=== PATIENT | male | born 1965 | race Two or more races ===

== ENCOUNTER 2019-07-12 00:34 | Emergency (ER) | payer MEDICARE, OTHER ==
[~2019-07-12] VITALS: Ht 162.6 cm; Wt 72.6 kg
[2019-07-12] MEDS ORDERED: Piperacillin/Tazobactam 3.375 GM in NS 110 ML IVPB ONE (01:00)
[2019-07-12] MEDS ORDERED: HYDROmorphone 1mg/ml Carpuject IVP ONE (01:00)
[2019-07-12] MEDS ORDERED: Vancomycin 1.5 GM in NS 275 ML IVPB ONE (01:00)
--- NOTE | 2019-07-12 01:00 | NUR ---
ED Nurse Note: Recieved pt from home, here with c/o right thumb pain for past 3 days after puncture with screwdriver, thumb is red, swollen and warm to touch, pt states always with pain but suddennly pain very severe and cant sleep, 10/. denies fevers or any other injuries, denies tetanus.
--- NOTE | 2019-07-12 01:13 | Emergency Room Report ---
History of Present Illness General Chief Complaint: Upper Extremity Injury Source: Patient Present Illness HPI This a 53-year-old male with a history of traumatic brain injury. He presents with chief complaint of right thumb pain. 4 days ago he was using a screwdriver on something and stabbed the right thumb. Since then is more swollen and painful. Tonight is severe pain that was throbbing. Can fall asleep. Pain is 10 out of 10. There is some redness and swelling to that area. No other injury. No nausea no vomiting. No fever chills. No drainage. 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 Patient History Past Medical History: see triage record, old chart reviewed Past Surgical History: other Pertinent Family History: none Social History: Denies: smoking Immunizations: UTD Reviewed Nursing Documentation: PMH: Agreed; PSxH: Agreed Review of Systems Eye: Denies: eye pain, blurred vision ENT: Denies: ear pain, nose congestion, throat swelling Respiratory: Denies: cough, shortness of breath Cardiovascular: Denies: chest pain, palpitations Gastrointestinal: Denies: abdominal pain, diarrhea, nausea, vomiting Musculoskeletal: Reports: joint pain, joint swelling; Denies: back pain Skin: Denies: rash Neurological: Denies: headache, numbness Endocrine: Denies: increased thirst, increased urine Hematologic/Lymphatic: Denies: easy bruising All Other Systems: negative except mentioned in HPI Physical Exam Vital Signs Date Time Temp Pulse Resp B/P (MAP) Pulse Ox O2 Delivery O2 Flow Rate FiO2 07/12/19 00:42 97.9 95 18 128/74 (92) 97 Room Air Vitals normal Sp02 EP Interpretation: reviewed, normal General Appearance: well appearing, no apparent distress, alert Head: normocephalic, atraumatic Eyes: bilateral eye PERRL, bilateral eye EOMI ENT: hearing grossly normal, normal pharynx Neck: full range of motion, supple, no meningismus Respiratory: chest non-tender, lungs clear, normal breath sounds Cardiovascular #1: regular rate, rhythm, no murmur Gastrointestinal: normal bowel sounds, non tender, no mass, no organomegaly, no bruit, non-distended Musculoskeletal: back normal, normal range of motion, gait/station normal, tender - Right thumb: Over the DIP joint dorsally there is edema and swelling. There is redness. He still has full range of motion of that joint. He has obvious paronychia to 80% of the thumb. There is is tenderness. The pad of the thumb has edema but is soft. No obvious felon. Psychiatric: mood/affect normal Procedures Incision and Drainage Incision and Drainage : Consent: Verbal Site: right thumb Blade Size: 11 I & D Procedure: betadine prep Wound Location: upper extremity Anesthesia: 1% Lidocaine Volume Anesthetic (ccs): 2 Patient Tolerated: Well Complications: None Progress Initially, I clean his fingernail with chlorhexidine and then trephinated with a cauterizer. There was minor amount of pus expressed. Patient felt better afterward. I did not soak this finger in a Betadine solution. Afterward, I did a digital block with 1% lidocaine without epinephrine. Then I ran 11 blade scalpel along the nailbed and there is more pus expressed. Over the puncture wound of the MCP joint and checked the small amount of lidocaine with insulin needle. I did I made a small incision. There is no pus expressed. Patient tolerated seizure without any problem. Wound was then dressed. Medical Decision Making Diagnostic Impression: Primary Impression: Cellulitis of thumb, right Additional Impression: Paronychia ER Course Patient with a cellulitis and abscess/paronychia from a puncture wound. No evidence of any felon. No evidence of any tenosynovitis. Will discharge home. IV antibiotics given here. Other X-Ray Diagnostic Results Other X-Ray Diagnostic Results : X-Ray ordered: rt thumb xrays # of Views/Limited Vs Complete: 4 View Indication: Pain EP Interpretation: Yes Interpretation: no dislocation, no soft tissue swelling, no fractures Impression: No acute disease Electronically Signed by: Jitendra Lemus MD Last Vital Signs Date Time Temp Pulse Resp B/P (MAP) Pulse Ox O2 Delivery O2 Flow Rate FiO2 07/12/19 00:42 97.9 95 18 128/74 (92) 97 Room Air Status: improved Disposition: HOME, SELF-CARE Condition: Stable Scripts Cephalexin* (KEFLEX*) 500 Mg Capsule 500 MG ORAL TID, #21 CAP Prov: Jitendra Lemus MD 07/12/19 Hydrocodone/Acetaminophen 5-325* (HYDROCODONE/ACETAMINOPHEN 5-325*) 1 Each Tablet 1 TAB ORAL Q6H PRN for For Pain, #15 TAB 0 Refills Prov: Jitendra Lemus MD 07/12/19 Trimethoprim/Sulfamethoxazole 160/800* (BACTRIM DS TABLET*) 1 Each Tablet 1 TAB ORAL Q12H, #14 TAB 0 Refills Prov: Jitendra Lemus MD 07/12/19 Referrals: [facility],REFERRING (PCP) Additional Instructions: Keep wound clean. Follow up in 1-2 days for recheck. Return if symptoms worsen. Jitendra Lemus MD July 12, 2019 01:13
[2019-07-12 01:30] LABS: BASOPHILS % (AUTO) 0.7 % (0.0-2.0); EOSINOPHILS % (AUTO) 1.7 % (0.0-3.0); HEMATOCRIT 41.9 % (42.0-52.0); HEMOGLOBIN 14.8 G/DL (14.2-18.0); LYMPHOCYTES % (AUTO) 12.6 % (20.0-45.0); MEAN CORPUSCULAR VOLUME 82 FL (80-99); MONOCYTES % (AUTO) 10.8 % (1.0-10.0); NEUTROPHILS % (AUTO) 74.2 % (45.0-75.0); PLATELET COUNT 330 K/UL (150-450); RED BLOOD COUNT 5.12 M/UL (4.70-6.10); RED CELL DISTRIBUTION WIDTH 10.9 % (11.6-14.8)
[2019-07-12 01:40] LABS: ANION GAP 13 mmol/L (5-15); BLOOD UREA NITROGEN 23 mg/dL (7-18); CALCIUM 9.7 MG/DL (8.5-10.1); CARBON DIOXIDE 23 MMOL/L (21-32); CHLORIDE 103 MMOL/L (98-107); CREATININE 1.3 MG/DL (0.55-1.30); POTASSIUM 3.4 MMOL/L (3.5-5.1); SODIUM 139 MMOL/L (136-145)
--- NOTE | 2019-07-12 02:00 | NUR ---
ED Nurse Note: Bcailio AUGUSTE while he performed Incision and drainage on pt right thumb, pt tolerated well, area cleaned and dry dressing applied, pt currently recieving IV antibiotics, tolerating well, no s/s of adverse recton noted, will continue to monitor and d/c when meds completed, IV pain meds given also very effective, pt pain level at o/10.
--- NOTE | 2019-07-12 02:01 | Diagnostic Imaging Report ---
EXAM: XR Right Fingers, 2 or More Views CLINICAL HISTORY: TRAUMA TECHNIQUE: Frontal, lateral and oblique views of the fingers of the right hand. COMPARISON: No relevant prior studies available. FINDINGS: Bones/joints: No acute fracture. No dislocation. Soft tissues: Unremarkable. No radiopaque foreign body. IMPRESSION: No acute osseous abnormalities.
[2019-07-12] MEDS ORDERED: HYDROCODON-ACE1 EA15 ORAL (02:21)
[2019-07-12] MEDS ORDERED: CEPHALEXIN500 MG ORAL (02:21)
[2019-07-12] MEDS ORDERED: BACTRIM DS TAB1 EAC1 ORAL (02:21)
[2019-07-12 02:45] VITALS: BP 122/69
[2019-07-12 03:00] VITALS: BP 122/69
--- NOTE | 2019-07-12 03:00 | NUR ---
ER DISCHARGE NOTE: Patient is cleared to be discharged per ERMD, pt is aox4, on room air, with stable vital signs. pt was given dc and prescription instructions, pt was able to verbalize understanding, pt id band and iv site removed without complications. pt is able to ambulate with steady gait. pt took all belongings.
== END 2019-07-12 03:00 | disposition home or self-care (01) ==
LOC: EMR 00:57
DX: L03.011 Cellulitis of right finger (principal); W27.0XXA Contact with workbench tool, initial encounter; Y92.9 Unspecified place or not applicable
CPT/HCPCS: 10060; 36415; 73140; 80048; 85025; 96365; 96367; 96375; 99284; J1170; J2405; J2543; J3370; J7050

== ENCOUNTER 2019-08-03 22:12 | Inpatient (IN) | payer MEDICARE, MEDICAID ==
[~2019-08-03] VITALS: Ht 160 cm; Wt 77.1 kg
[~2019-08-03 22:12] MED LIST: BACTRIM DS TAB1 EAC1 ORAL; CEPHALEXIN500 MG ORAL; HYDROCODON-ACE1 EA15 ORAL
[2019-08-03 22:20] VITALS: BP 196/122
[2019-08-03 22:42] LABS: BASOPHILS % (AUTO) 0.9 % (0.0-2.0); EOSINOPHILS % (AUTO) 0.2 % (0.0-3.0); HEMATOCRIT 44.3 % (42.0-52.0); HEMOGLOBIN 14.2 G/DL (14.2-18.0); LYMPHOCYTES % (AUTO) 8.4 % (20.0-45.0); MEAN CORPUSCULAR VOLUME 90 FL (80-99); MONOCYTES % (AUTO) 7.6 % (1.0-10.0); PLATELET COUNT 312 K/UL (150-450); RED BLOOD COUNT 4.94 M/UL (4.70-6.10); RED CELL DISTRIBUTION WIDTH 12.5 % (11.6-14.8); WHITE BLOOD COUNT 14.8 K/UL (4.8-10.8)
[2019-08-03] MEDS ORDERED: Methocarbamol 750mg tab ORAL ONE (22:45)
[2019-08-03] MEDS ORDERED: Ketorolac 30mg Inj IV ONE (22:45)
[2019-08-03] MEDS ORDERED: Morphine Sulfate 4mg/ml Inj (IV USE ONLY) IVP ONE (22:45)
[2019-08-03 22:55] LABS: ANION GAP 11 mmol/L (5-15); BLOOD UREA NITROGEN 22 mg/dL (7-18); CALCIUM 9.3 MG/DL (8.5-10.1); CARBON DIOXIDE 26 MMOL/L (21-32); CHLORIDE 104 MMOL/L (98-107); CREATININE 1.4 MG/DL (0.55-1.30); POTASSIUM 3.9 MMOL/L (3.5-5.1); SODIUM 141 MMOL/L (136-145)
[2019-08-03 23:00] LABS: ALANINE AMINOTRANSFERASE 30 U/L (12-78); ALBUMIN 4.2 G/DL (3.4-5.0); ALBUMIN/GLOBULIN RATIO 1.2 (1.0-2.7); ALKALINE PHOSPHATASE 73 U/L (46-116); ASPARTATE AMINO TRANSFERASE 22 U/L (15-37); BILIRUBIN,TOTAL 0.7 MG/DL (0.2-1.0)
[2019-08-03] MEDS ORDERED: Omnipaque 350 100ml vial INJ PRN ×2 (23:00)
--- NOTE | 2019-08-04 00:27 | Emergency Room Report ---
History of Present Illness General Chief Complaint: Back Pain-No Injury Source: Patient Present Illness HPI 53-year-old male presents the ED for evaluation. Brought in by family from home. Complaining of back pain. Started today. Dull, 10 out of 10, nonradiating. States he has had similar back pain in the past. Denies nausea or vomiting. Denies dysuria or hematuria. Denies any fall or injury. BP in triage very high. Patient states he is not taking his BP meds in a few months. Denies chest pain or shortness of breath. No other aggravating relieving factors. Denies any other associated symptoms Allergies: Coded Allergies: No Known Allergies (Unverified , 07/12/19) COVID-19 Screening Contact w/high risk pt: No Recent Travel to affected area: No Experienced COVID-19 symptoms?: No COVID-19 Testing performed CLERICAL TRANSCRIBER: No Patient History Past Medical History: none Past Surgical History: none Pertinent Family History: none Social History: Denies: smoking, alcohol use, drug use Immunizations: UTD Reviewed Nursing Documentation: PMH: Agreed; PSxH: Agreed Nursing Documentation-PMH Past Medical History: No Stated History Review of Systems All Other Systems: negative except mentioned in HPI Physical Exam Vital Signs Date Time Temp Pulse Resp B/P (MAP) Pulse Ox O2 Delivery O2 Flow Rate FiO2 08/03/19 22:16 98.2 81 19 196/122 (146) 96 Room Air Sp02 EP Interpretation: reviewed, normal General Appearance: alert, GCS 15, non-toxic, mild distress Head: normocephalic, atraumatic Eyes: bilateral eye normal inspection, bilateral eye PERRL ENT: hearing grossly normal, normal pharynx, no angioedema, normal voice Neck: full range of motion, supple/symm/no masses Respiratory: chest non-tender, lungs clear, normal breath sounds, speaking full sentences Cardiovascular #1: regular rate, rhythm, no edema Cardiovascular #2: 2+ carotid (R), 2+ carotid (L), 2+ radial (R), 2+ radial (L) , 2+ dorsalis pedis (R), 2+ dorsalis pedis (L) Gastrointestinal: normal bowel sounds, non tender, soft, non-distended, no guarding, no rebound Rectal: deferred Genitourinary: normal inspection, no CVA tenderness Musculoskeletal: normal range of motion, gait/station normal, tender - R paraspinal lumbar tenderness Neurologic: alert, motor strength/tone normal, oriented x3, sensory intact, responsive, speech normal Psychiatric: judgement/insight normal, memory normal, mood/affect normal, no suicidal/homicidal ideation Reflexes: 3+ bicep (R), 3+ bicep (L), 3+ tricep (R), 3+ tricep (L), 3+ knee (R) , 3+ knee (L) Lymphatic: no adenopathy Procedures Critical Care Time Critical Care Time i. I feel this is a highly complex case requiring extensive working including EKG/Rhythm strip, Xray/CT/US, Blood/urine lab work, repeat exams while in ED, and administration of strong opiates/narcotics for pain control, admission to hospital or close patient follow up. Total time: 45 min bedside evaluation and treatment excludes procedures (EKG). Reason for critical care: elevated BP Possible complications: hypotension, hypertension, VA, shock, arrhythmias, metabolic acidosis, end organ damage, respiratory failure. Interventions: labs, meds, CT Course: Presenting with back pain. Systolic BP over 200. Minimal leukocytosis. Hemoglobin/hematocrit stable. CTA shows 7mm stone on right side with obstructing. BP improved after medication. given flomax. given antibiotics. given toradol. Consultations: nursing staff, EMS, family Performed by: Dr Mitchell Tolerated well condition = serious j. because of unstable vital signs this patient had a condition that could potentially threaten life or limb. I feel this is a critical patient who required my full attention while patient was considered critical. Total Critical Care Time excluding procedures was greater than 50 minutes Medical Decision Making Diagnostic Impression: Primary Impression: Hypertension Qualified Codes: I10 - Essential (primary) hypertension Additional Impression: Kidney stone on right side ER Course Hospital Course 53-year-old M presents to ED with R lower back pain Differential diagnosis includes-aortic dissection, muscle strain kidney stone, pyelonephritis Clinical course Patient placed on stretcher. After initial history and physical I ordered labs , IV fluids, pain medications and CT scan Labs - marked leukocytosis, Cr 1.4, LFTs normal, UA - gross blood CT scan shows 7mm stone on R with hydronephrosis/perinephric stranding Patient continues to have pain. BP initially over 200. Patient also has not been taking his BP meds for several months now. Given hydralazine with BP improved. Given Flomax. Given Toradol. Antibiotics given. Dr Mercado consulted and will evaluate patient. Patient will be admitted to Dr Mesa service I feel this is a highly complex case requiring extensive working including EKG/ Rhythm strip, Xray/CT/US, Blood/urine lab work, repeat exams while in ED, and administration of strong opiates/narcotics for pain control, admission to hospital or close patient follow up. Diagnosis - kidney stone, hypertesion admitted to floor in serious condition Labs Test 08/03/19 22:30 White Blood Count 14.8 K/UL (4.8-10.8) Red Blood Count 4.94 M/UL (4.70-6.10) Hemoglobin 14.2 G/DL (14.2-18.0) Hematocrit 44.3 % (42.0-52.0) Mean Corpuscular Volume 90 FL (80-99) Mean Corpuscular Hemoglobin 28.7 PG (27.0-31.0) Mean Corpuscular Hemoglobin Concent 32.0 G/DL (32.0-36.0) Red Cell Distribution Width 12.5 % (11.6-14.8) Platelet Count 312 K/UL (150-450) Mean Platelet Volume 6.7 FL (6.5-10.1) Neutrophils (%) (Auto) 83.0 % (45.0-75.0) Lymphocytes (%) (Auto) 8.4 % (20.0-45.0) Monocytes (%) (Auto) 7.6 % (1.0-10.0) Eosinophils (%) (Auto) 0.2 % (0.0-3.0) Basophils (%) (Auto) 0.9 % (0.0-2.0) Sodium Level 141 MMOL/L (136-145) Potassium Level 3.9 MMOL/L (3.5-5.1) Chloride Level 104 MMOL/L (98-107) Carbon Dioxide Level 26 MMOL/L (21-32) Anion Gap 11 mmol/L (5-15) Blood Urea Nitrogen 22 mg/dL (7-18) Creatinine 1.4 MG/DL (0.55-1.30) Estimat Glomerular Filtration Rate 53.2 mL/min (>60) Glucose Level 123 MG/DL (74-106) Calcium Level 9.3 MG/DL (8.5-10.1) Total Bilirubin 0.7 MG/DL (0.2-1.0) Aspartate Amino Transf (AST/SGOT) 22 U/L (15-37) Alanine Aminotransferase (ALT/SGPT) 30 U/L (12-78) Alkaline Phosphatase 73 U/L (46-116) Total Protein 7.8 G/DL (6.4-8.2) Albumin 4.2 G/DL (3.4-5.0) Globulin 3.6 g/dL Albumin/Globulin Ratio 1.2 (1.0-2.7) CT/MRI/US Diagnostic Results CT/MRI/US Diagnostic Results : Imaging Test Ordered: CTA Chest/Abd/Pelvis Impression EXAM: CT Abdomen and Pelvis Without and With Intravenous Contrast CLINICAL HISTORY: ABD PAIN TECHNIQUE: Axial computed tomography images of the abdomen and pelvis without and with intravenous contrast. CTDI is 126 mGy and DLP is 591 mGy-cm. One or more of the following dose reduction techniques were used: automated exposure control, adjustment of the mA and/or kV according to patient size, use of iterative reconstruction technique. COMPARISON: No relevant prior studies available. FINDINGS: Lung bases: Unremarkable. No mass. No consolidation. ABDOMEN: Liver: See below. Gallbladder and bile ducts: See below. Pancreas: See below. Spleen: See below. Adrenals: Unremarkable. No mass. Kidneys and ureters: 7 mm partially obstructing calculus located at the right mid ureter. Mild upstream dilatation of the collecting system. There is suggestion of mild urothelial enhancement. There is left renal enlargement and perinephric stranding/small fluid. These findings are likely obstructive but would correlate clinically to exclude a supervised infection. Additional small right and left renal calyceal Which Are Nonobstructing. Exophytic Cyst at the Lower Pole of the Left Kidney. Stomach and bowel: Fluid within nondistended loops of small bowel and within stomach without bowel wall thickening or surrounding inflammation can be normal or can be seen with gastroenteritis in the right clinical setting. PELVIS: Small fat-containing right inguinal hernia. Appendix: No appendicitis, inflammatory changes of bowel or bowel obstruction. Bladder: Unremarkable. No mass. No stones. Reproductive: Unremarkable as visualized. ABDOMEN and PELVIS: Intraperitoneal space: No free fluid. No free air. Bones/joints: No acute fracture. No dislocation. Soft tissues: Unremarkable. Vasculature: Aorta, liver, spleen, pancreas, gallbladder, and remaining kidneys are unremarkable. No abdominal aortic aneurysm. Lymph nodes: Unremarkable. No enlarged lymph nodes. IMPRESSION: 7 mm partially obstructing calculus located at the right mid ureter. Mild upstream dilatation of the collecting system. There is suggestion of mild urothelial enhancement. There is left renal enlargement and perinephric stranding/small fluid. These findings are likely obstructive but would correlate clinically to exclude a supervised infection. Last Vital Signs Date Time Temp Pulse Resp B/P (MAP) Pulse Ox O2 Delivery O2 Flow Rate FiO2 08/03/19 23:09 98.2 08/03/19 23:03 202/143 08/03/19 22:20 83 19 96 Room Air Status: improved Disposition: ADMITTED INPATIENT Condition: Serious Referrals: NOT CHOSEN [facility]/,REFERRING (PCP) Axel Mitchell MD Aug 04, 2019 00:27
[2019-08-04 00:37] VITALS: BP 160/95
--- NOTE | 2019-08-04 00:42 | Diagnostic Imaging Report ---
EXAM: CT Chest Without and With Intravenous Contrast CLINICAL HISTORY: ABD PAIN TECHNIQUE: Axial computed tomography images of the chest without and with intravenous contrast. CTDI is 126 mGy and DLP is 591 mGy-cm. One or more of the following dose reduction techniques were used: automated exposure control, adjustment of the mA and/or kV according to patient size, use of iterative reconstruction technique. COMPARISON: No relevant prior studies available. FINDINGS: Lungs: Unremarkable. No mass. No consolidation. Pleural space: Unremarkable. No pneumothorax. No significant effusion. Heart: Unremarkable. No cardiomegaly. No significant pericardial effusion. Bones/joints: Unremarkable. No acute fracture. No dislocation. Soft tissues: Unremarkable. Vasculature: Unremarkable. No thoracic aortic aneurysm. Lymph nodes: Unremarkable. No enlarged lymph nodes. IMPRESSION: No acute cardiopulmonary disease. EXAM: CT Abdomen and Pelvis Without and With Intravenous Contrast CLINICAL HISTORY: ABD PAIN TECHNIQUE: Axial computed tomography images of the abdomen and pelvis without and with intravenous contrast. CTDI is 126 mGy and DLP is 591 mGy-cm. One or more of the following dose reduction techniques were used: automated exposure control, adjustment of the mA and/or kV according to patient size, use of iterative reconstruction technique. COMPARISON: No relevant prior studies available. FINDINGS: Lung bases: Unremarkable. No mass. No consolidation. ABDOMEN: Liver: See below. Gallbladder and bile ducts: See below. Pancreas: See below. Spleen: See below. Adrenals: Unremarkable. No mass. Kidneys and ureters: 7 mm partially obstructing calculus located at the right mid ureter. Mild upstream dilatation of the collecting system. There is suggestion of mild urothelial enhancement. There is left renal enlargement and perinephric stranding/small fluid. These findings are likely obstructive but would correlate clinically to exclude a supervised infection. Additional small right and left renal calyceal Which Are Nonobstructing. Exophytic Cyst at the Lower Pole of the Left Kidney. Stomach and bowel: Fluid within nondistended loops of small bowel and within stomach without bowel wall thickening or surrounding inflammation can be normal or can be seen with gastroenteritis in the right clinical setting. PELVIS: Small fat-containing right inguinal hernia. Appendix: No appendicitis, inflammatory changes of bowel or bowel obstruction. Bladder: Unremarkable. No mass. No stones. Reproductive: Unremarkable as visualized. ABDOMEN and PELVIS: Intraperitoneal space: No free fluid. No free air. Bones/joints: No acute fracture. No dislocation. Soft tissues: Unremarkable. Vasculature: Aorta, liver, spleen, pancreas, gallbladder, and remaining kidneys are unremarkable. No abdominal aortic aneurysm. Lymph nodes: Unremarkable. No enlarged lymph nodes. IMPRESSION: 7 mm partially obstructing calculus located at the right mid ureter. Mild upstream dilatation of the collecting system. There is suggestion of mild urothelial enhancement. There is left renal enlargement and perinephric stranding/small fluid. These findings are likely obstructive but would correlate clinically to exclude a supervised infection.
[2019-08-04] MEDS ORDERED: cefTRIAXone 1 GM in NS 55 ML IVPB ONE (01:00)
[2019-08-04] MEDS ORDERED: Tamsulosin 0.4mg cap ORAL ONE (01:00)
[2019-08-04] MEDS ORDERED: Ketorolac 30mg Inj IV ONE (01:00)
[2019-08-04 01:59] LABS: APPEARANCE,URINE CLEAR; BILIRUBIN, URINE NEGATIVE (NEGATIVE); COLOR,URINE PALE YELLOW; GLUCOSE, URINE (UA) NEGATIVE (NEGATIVE); KETONES,URINE 2+ (NEGATIVE); LEUKOCYTE ESTERASE ,URINE NEGATIVE (NEGATIVE); NITRITE,URINE NEGATIVE (NEGATIVE); PH,URINE 7 (4.5-8.0); PROTEIN,URINE 1+ (NEGATIVE); UROBILINOGEN,URINE NORMAL MG/DL (0.0-1.0)
[2019-08-04 04:00] VITALS: BP 138/103
[2019-08-04] MEDS ORDERED: cloNIDine 0.2mg Tab ORAL SCH (06:00)
[2019-08-04 07:02] LABS: BASOPHILS % (AUTO) 1.7 % (0.0-2.0); EOSINOPHILS % (AUTO) 1.7 % (0.0-3.0); HEMOGLOBIN 13.2 G/DL (14.2-18.0); LYMPHOCYTES % (AUTO) 23.1 % (20.0-45.0); MEAN CORPUSCULAR VOLUME 90 FL (80-99); MONOCYTES % (AUTO) 10.7 % (1.0-10.0); NEUTROPHILS % (AUTO) 62.9 % (45.0-75.0); PLATELET COUNT 278 K/UL (150-450); RED BLOOD COUNT 4.54 M/UL (4.70-6.10); RED CELL DISTRIBUTION WIDTH 12.2 % (11.6-14.8)
[2019-08-04 07:42] LABS: ANION GAP 10 mmol/L (5-15); BLOOD UREA NITROGEN 20 mg/dL (7-18); CALCIUM 8.2 MG/DL (8.5-10.1); CARBON DIOXIDE 25 MMOL/L (21-32); CHLORIDE 106 MMOL/L (98-107); CREATININE 1.1 MG/DL (0.55-1.30); POTASSIUM 3.5 MMOL/L (3.5-5.1); SODIUM 141 MMOL/L (136-145)
[2019-08-04 08:00] VITALS: BP 127/81
[2019-08-04 12:00] VITALS: BP 122/82
--- NOTE | 2019-08-04 13:45 | Consultation ---
DATE OF CONSULTATION: 08/04/2019 CONSULTING PHYSICIAN: Ludin Mercado MD. REASON FOR CONSULTATION: Right mid ureteral stone obstruction and hydronephrosis. HISTORY OF PRESENT ILLNESS: The patient is a pleasant gentleman who was admitted through the ER last night with right flank pain. CT urogram showed 7 mm partially obstructing stone of the mid ureter. He had this pain for several days and was admitted for fluid management and pain control. PAST MEDICAL HISTORY: Reviewed and noted in the chart. FAMILY HISTORY: Reviewed and noted in the chart. SOCIAL HISTORY: Reviewed and noted in the chart. LABORATORY DATA: His white count was 14.8, hematocrit is 44.3. His creatinine is 1.4. It went down to 1.[address] was described above. ASSESSMENT AND PLAN: The patient has obstructing left ureteral stone. We will proceed with lithotripsy tomorrow. He will be NPO post midnight with preoperative antibiotics. We will follow this patient. Ludin Mercado M.D. DR: GENEVA JOB#: [id number] CC:
--- NOTE | 2019-08-04 13:52 | Consultation ---
History of Present Illness General Date patient seen: Aug 04, 2019 Time patient seen: 01:30 - pm Chief Complaint: Present Illness Allergies: Coded Allergies: No Known Allergies (Unverified , 07/12/19) Medication History Scheduled Cephalexin* (Keflex*), 500 MG ORAL TID Trimethoprim/Sulfamethoxazole 160/800* (Bactrim Ds Tablet*), 1 TAB ORAL Q12H Scheduled PRN Hydrocodone/Acetaminophen 5-325* (Hydrocodone/Acetaminophen 5-325*), 1 TAB ORAL Q6H PRN for For Pain Patient History Healthcare decision maker Resuscitation status Advanced Directive on File Physical Exam Last 24 Hour Vital Signs Date Time Temp Pulse Resp B/P (MAP) Pulse Ox O2 Delivery O2 Flow Rate FiO2 08/04/19 09:00 Room Air 08/04/19 08:00 98.3 92 18 127/81 (96) 97 08/04/19 04:00 98.1 98 18 138/103 (115) 97 08/04/19 02:46 Room Air 08/04/19 02:08 98.2 92 16 160/99 99 Room Air 08/04/19 01:27 98.2 08/04/19 00:37 98.2 94 16 160/95 99 Room Air 08/03/19 23:09 98.2 08/03/19 23:09 98.2 08/03/19 23:03 202/143 08/03/19 22:20 98.2 83 19 196/122 96 Room Air 08/03/19 22:16 98.2 81 19 196/122 (146) 96 Room Air Intake and Output 08/03/19 08/04/19 19:00 07:00 Intake Total 1200 ml Output Total 500 ml Balance 700 ml Intake Oral 200 ml IV Total 1000 ml Output Urine Total 500 ml # Voids 1 Laboratory Tests Test 08/03/19 22:30 08/04/19 01:00 08/04/19 06:30 White Blood Count 14.8 K/UL (4.8-10.8) H 9.0 K/UL (4.8-10.8) Red Blood Count 4.94 M/UL (4.70-6.10) 4.54 M/UL (4.70-6.10) L Hemoglobin 14.2 G/DL (14.2-18.0) 13.2 G/DL (14.2-18.0) L Hematocrit 44.3 % (42.0-52.0) 41.0 % (42.0-52.0) L Mean Corpuscular Volume 90 FL (80-99) 90 FL (80-99) Mean Corpuscular Hemoglobin 28.7 PG (27.0-31.0) 29.0 PG (27.0-31.0) Mean Corpuscular Hemoglobin Concent 32.0 G/DL (32.0-36.0) 32.1 G/DL (32.0-36.0) Red Cell Distribution Width 12.5 % (11.6-14.8) 12.2 % (11.6-14.8) Platelet Count 312 K/UL (150-450) 278 K/UL (150-450) Mean Platelet Volume 6.7 FL (6.5-10.1) 6.6 FL (6.5-10.1) Neutrophils (%) (Auto) 83.0 % (45.0-75.0) H 62.9 % (45.0-75.0) Lymphocytes (%) (Auto) 8.4 % (20.0-45.0) L 23.1 % (20.0-45.0) Monocytes (%) (Auto) 7.6 % (1.0-10.0) 10.7 % (1.0-10.0) H Eosinophils (%) (Auto) 0.2 % (0.0-3.0) 1.7 % (0.0-3.0) Basophils (%) (Auto) 0.9 % (0.0-2.0) 1.7 % (0.0-2.0) Sodium Level 141 MMOL/L (136-145) 141 MMOL/L (136-145) Potassium Level 3.9 MMOL/L (3.5-5.1) 3.5 MMOL/L (3.5-5.1) Chloride Level 104 MMOL/L (98-107) 106 MMOL/L (98-107) Carbon Dioxide Level 26 MMOL/L (21-32) 25 MMOL/L (21-32) Anion Gap 11 mmol/L (5-15) 10 mmol/L (5-15) Blood Urea Nitrogen 22 mg/dL (7-18) H 20 mg/dL (7-18) H Creatinine 1.4 MG/DL (0.55-1.30) H 1.1 MG/DL (0.55-1.30) Estimat Glomerular Filtration Rate 53.2 mL/min (>60) > 60 mL/min (>60) Glucose Level 123 MG/DL (74-106) H 107 MG/DL (74-106) H Calcium Level 9.3 MG/DL (8.5-10.1) 8.2 MG/DL (8.5-10.1) L Total Bilirubin 0.7 MG/DL (0.2-1.0) Aspartate Amino Transf (AST/SGOT) 22 U/L (15-37) Alanine Aminotransferase (ALT/SGPT) 30 U/L (12-78) Alkaline Phosphatase 73 U/L (46-116) Total Protein 7.8 G/DL (6.4-8.2) Albumin 4.2 G/DL (3.4-5.0) Globulin 3.6 g/dL Albumin/Globulin Ratio 1.2 (1.0-2.7) Urine Color Pale yellow Urine Appearance Clear Urine pH 7 (4.5-8.0) Urine Specific [place] 1.010 (1.005-1.035) Urine Protein 1+ (NEGATIVE) H Urine Glucose (UA) Negative (NEGATIVE) Urine Ketones 2+ (NEGATIVE) H Urine Blood 5+ (NEGATIVE) H Urine Nitrite Negative (NEGATIVE) Urine Bilirubin Negative (NEGATIVE) Urine Urobilinogen Normal MG/DL (0.0-1.0) Urine Leukocyte Esterase Negative (NEGATIVE) Urine RBC Tntc /HPF (0 - 0) H Urine WBC 0-2 /HPF (0 - 0) Urine Squamous Epithelial Cells Few /LPF (NONE/OCC) Urine Bacteria Few /HPF (NONE) Urine Opiates Screen neg (NEGATIVE) Urine Barbiturates Screen neg (NEGATIVE) Phencyclidine (PCP) Screen neg (NEGATIVE) Urine Amphetamines Screen neg (NEGATIVE) Urine Benzodiazepines Screen neg (NEGATIVE) Urine Cocaine Screen neg (NEGATIVE) Urine Marijuana (THC) Screen neg (NEGATIVE) Height (Feet): 5 Height (Inches): 4.00 Weight (Pounds): 195 Medications Current Medications Medications (Trade) Dose Ordered Sig/Bret Route PRN Reason Start Time Stop Time Status Last Admin Dose Admin Acetaminophen/ Hydrocodone Bitart ([place] 5/325) 1 tab Q6H PRN ORAL For Pain 08/04/19 04:45 08/11/19 04:44 Cefazolin Sodium 50 ml @ 100 mls/hr Q8HR IVPB 08/05/19 06:00 08/12/19 05:59 UNV Clonidine HCl (Catapres Tab) 0.1 mg Q6H PRN ORAL For High Blood Pressure 08/04/19 04:45 11/02/19 04:44 Ibuprofen (Motrin) 600 mg Q6H PRN ORAL Mild Pain (Pain Scale 1-3) 08/04/19 10:45 09/03/19 04:44 Iohexol (Omnipaque 350 100ml) 100 ml NOW PRN INJ Radiology Procedure 08/03/19 23:00 08/05/19 22:57 Iohexol (Omnipaque 350 100ml) 100 ml NOW PRN INJ Radiology Procedure 08/03/19 23:00 08/05/19 22:57 Ondansetron HCl (Zofran) 4 mg Q6H PRN IVP Nausea & Vomiting 08/04/19 04:45 09/03/19 04:44 Assessment/Plan Assessment/Plan: (1) Right sided flank pain (2) Kidney stone seen dictated Leonardo Joseph Aug 04, 2019 13:52
--- NOTE | 2019-08-04 14:13 | Consultation ---
Consult Note Consult Note I am asked to evaluate the patient at the request of Dr. Mesa. Patient was seen in room 314, his sister at the bedside. Emergency room note: Chief Complaint: Back Pain-No Injury 53-year-old male presents the ED for evaluation. Brought in by family from home. Complaining of back pain. Started today. Dull, 10 out of 10, nonradiating. States he has had similar back pain in the past. Denies nausea or vomiting. Denies dysuria or hematuria. Denies any fall or injury. BP in triage very high. Patient states he is not taking his BP meds in a few months. Denies chest pain or shortness of breath. No other aggravating relieving factors. 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 Past Medical History: none Past Surgical History: none Past Medical History: No Stated History Vital Signs Date Time Temp Pulse Resp B/P (MAP) Pulse Ox O2 Delivery O2 Flow Rate FiO2 08/03/19 22:16 98.2 81 19 196/122 (146) 96 Room Air Sp02 EP Interpretation: reviewed, normal General Appearance: In no distress Head: normocephalic, atraumatic Eyes: bilateral eye normal inspection, bilateral eye PERRL ENT: hearing grossly normal, normal pharynx, no angioedema, normal voice Neck: full range of motion, supple/symm/no masses Respiratory: chest non-tender, lungs clear, normal breath sounds, speaking full sentences Cardiovascular #1: regular rate, rhythm, no edema Cardiovascular #2: 2+ carotid (R), 2+ carotid (L), 2+ radial (R), 2+ radial (L) , 2+ dorsalis pedis (R), 2+ dorsalis pedis (L) Gastrointestinal: normal bowel sounds, non tender, soft, non-distended, no guarding, no rebound Rectal: deferred Genitourinary: normal inspection, no CVA tenderness Musculoskeletal: normal range of motion, gait/station normal, tender - R paraspinal lumbar tenderness Neurologic: alert, motor strength/tone normal, oriented x3, sensory intact, responsive, speech normal Psychiatric: judgement/insight normal, memory normal, mood/affect normal, no suicidal/homicidal ideation Reflexes: 3+ bicep (R), 3+ bicep (L), 3+ tricep (R), 3+ tricep (L), 3+ knee (R) , 3+ knee (L) Lymphatic: no adenopathy Assessment/Plan This 53-year-old male presented to emergency room with back pain and hypertension and at that time the serum creatinine was 1.4. Hypertension was most likely due to severe pain. Creatinine of 1.4 was most likely secondary to dehydration and ever since its normalized. Conditions: Hypertension, Kidney stone on right side CT iMPRESSION: 7 mm partially obstructing calculus located at the right mid ureter. Mild upstream dilatation of the collecting system. There is suggestion of mild urothelial enhancement. There is left renal enlargement and perinephric stranding/small fluid. These findings are likely obstructive Suggestions: Patient is going for urological procedure tomorrow by Dr. Mercado Patient is n.p.o. after midnight We will start IV hydration We started Colace and Protonix p.o. PRN blood pressure medication if blood pressure goes over 160 systolic Per orders Boogie Toussaint MD Aug 04, 2019 14:13
[2019-08-04] MEDS: D5 1/2NS w/KCl 20mEq 1,000 ML IV SCH (15:09)
--- NOTE | 2019-08-04 15:12 | Anethesia Preoperative Eval ---
Anesthesia Pre-op PMH/ROS General Date of Evaluation: Aug 04, 2019 Time of Evaluation: 15:08 Anesthesiologist: Mindy ASA Score: ASA 2 Mallampati Score Class I : Soft palate, uvula, fauces, pillars visible Class II: Soft palate, uvula, fauces visible Class III: Soft palate, base of uvula visible Class IV: Only hard plate visible Mallampati Classification: Class II Surgeon: Rogelio Diagnosis: R kidney stone Surgical Procedure: ESWL Anesthesia History: none Family History: no anesthesia problems Allergies: Coded Allergies: No Known Allergies (Unverified , 07/12/19) Medications: see eMAR Patient NPO?: Yes Past Medical History Cardiovascular: Reports: HTN - poorly controled; Denies: CAD, [place], valve dz, arrhythmia, other Pulmonary: Denies: asthma, COPD, GRACIE, other Gastrointestinal/Genitourinary: Reports: GERD; Denies: CRI, ESRD, other Neurologic/Psychiatric: Denies: dementia, CVA, depression/anxiety, TIA, other Endocrine: Denies: DM, hypothyroidism, steroids, other HEENT: Denies: cataract (L), cataract (R), glaucoma, [facility] (L), [facility] (R), other Hematology/Immune: Denies: anemia, DVT, bleeding disorder, other Musculoskeletal/Integumentary: Denies: OA, RA, DJD, DDD, edema, other Other: other - overweight PMH Narrative: as above PSxH Narrative: L eye Sx, Hemorrhoidectomy Anesthesia Pre-op Phys. Exam Physician Exam Last Vital Signs Date Time Temp Pulse Resp B/P (MAP) Pulse Ox O2 Delivery O2 Flow Rate FiO2 08/04/19 12:00 98.6 95 17 122/82 (95) 97 08/04/19 09:00 Room Air Constitutional: NAD Neurologic: CN 2-12 intact Cardiovascular: RRR, no M/R/G Respiratory: CTA Gastrointestinal: S/NT/ND Airway Exam Mallampati Score: Class II MO: full Neck: flexible ROM: full Teeth: missing Dentures: no upper, no lower Anesthesia Pre-op A/P Labs Hematology Test 08/03/19 22:30 08/04/19 06:30 White Blood Count 14.8 K/UL (4.8-10.8) H 9.0 K/UL (4.8-10.8) Red Blood Count 4.94 M/UL (4.70-6.10) 4.54 M/UL (4.70-6.10) L Hemoglobin 14.2 G/DL (14.2-18.0) 13.2 G/DL (14.2-18.0) L Hematocrit 44.3 % (42.0-52.0) 41.0 % (42.0-52.0) L Mean Corpuscular Volume 90 FL (80-99) 90 FL (80-99) Mean Corpuscular Hemoglobin 28.7 PG (27.0-31.0) 29.0 PG (27.0-31.0) Mean Corpuscular Hemoglobin Concent 32.0 G/DL (32.0-36.0) 32.1 G/DL (32.0-36.0) Red Cell Distribution Width 12.5 % (11.6-14.8) 12.2 % (11.6-14.8) Platelet Count 312 K/UL (150-450) 278 K/UL (150-450) Mean Platelet Volume 6.7 FL (6.5-10.1) 6.6 FL (6.5-10.1) Neutrophils (%) (Auto) 83.0 % (45.0-75.0) H 62.9 % (45.0-75.0) Lymphocytes (%) (Auto) 8.4 % (20.0-45.0) L 23.1 % (20.0-45.0) Monocytes (%) (Auto) 7.6 % (1.0-10.0) 10.7 % (1.0-10.0) H Eosinophils (%) (Auto) 0.2 % (0.0-3.0) 1.7 % (0.0-3.0) Basophils (%) (Auto) 0.9 % (0.0-2.0) 1.7 % (0.0-2.0) Chemistry Test 08/03/19 22:30 08/04/19 06:30 Sodium Level 141 MMOL/L (136-145) 141 MMOL/L (136-145) Potassium Level 3.9 MMOL/L (3.5-5.1) 3.5 MMOL/L (3.5-5.1) Chloride Level 104 MMOL/L (98-107) 106 MMOL/L (98-107) Carbon Dioxide Level 26 MMOL/L (21-32) 25 MMOL/L (21-32) Anion Gap 11 mmol/L (5-15) 10 mmol/L (5-15) Blood Urea Nitrogen 22 mg/dL (7-18) H 20 mg/dL (7-18) H Creatinine 1.4 MG/DL (0.55-1.30) H 1.1 MG/DL (0.55-1.30) Estimat Glomerular Filtration Rate 53.2 mL/min (>60) > 60 mL/min (>60) Glucose Level 123 MG/DL (74-106) H 107 MG/DL (74-106) H Calcium Level 9.3 MG/DL (8.5-10.1) 8.2 MG/DL (8.5-10.1) L Total Bilirubin 0.7 MG/DL (0.2-1.0) Aspartate Amino Transf (AST/SGOT) 22 U/L (15-37) Alanine Aminotransferase (ALT/SGPT) 30 U/L (12-78) Alkaline Phosphatase 73 U/L (46-116) Total Protein 7.8 G/DL (6.4-8.2) Albumin 4.2 G/DL (3.4-5.0) Globulin 3.6 g/dL Albumin/Globulin Ratio 1.2 (1.0-2.7) Risk Assessment & Plan Assessment: ASA 2 Plan: GA Status Change Before Surgery: No Pre-Antibiotics Drug: as scheduled Guanako Guillen MD Aug 04, 2019 15:12
[2019-08-04 16:00] VITALS: BP 128/76
[2019-08-04] MEDS: Docusate 100mg cap ORAL SCH (17:20)
--- NOTE | 2019-08-04 18:30 | Consultation ---
DATE OF CONSULTATION: 08/04/2019 PAIN MANAGEMENT CONSULTATION CONSULTING PHYSICIAN: Azul Lopez M.D. REFERRING PHYSICIAN: Leandro Mesa M.D. PHYSICIAN PREPRESS SPECIALIST: TRIP Thomas CHIEF COMPLAINT: Right-sided flank pain. HISTORY OF PRESENT ILLNESS: This is a 53-year-old male, who is being seen on the Med[facility]Surg floor of [facility] for initial pain management consultation. The patient was admitted under the care of Dr. Mesa, found to have kidney stone which is obstructing at this time. He says that it started about a day ago, it is off and on pain that is acute, rating 10/10, describing the pain as throbbing, stabbing, pulling pain, increased with certain movement and reduced with medication of [place] 5/325 one tablet every 6 hours as needed for severe pain. He has been seen Dr. Mercado who schedule the patient for lithotripsy. At this time, he is comfortable on the current medication regimen. We were consulted so the patient would have adequate pain control while here in the hospital. PAST MEDICAL HISTORY: Hypertension. PAST SURGICAL HISTORY: Head and eye surgery. SOCIAL HISTORY: Denies smoking tobacco, drinking alcohol, or drug abuse. ALLERGIES: No known drug allergies. MEDICATIONS: No known outpatient medication. REVIEW OF SYSTEMS: Denies rash, fever, chills, sweating, dizziness, drowsiness, sore throat, or change in weight. No shortness of breath or chest pain. No nausea, vomiting, diarrhea, blood in stool. No dysuria. PHYSICAL EXAMINATION: GENERAL: Alert, awake, and oriented. VITAL SIGNS: Blood pressure 127/81, heart rate 92, oxygen saturation 97%, respiratory rate 18, temperature 9.3 degrees Fahrenheit. HEENT: PERRLA. NECK: Range of motion is full in all directions. No tenderness to paracervical muscles. No adenopathy. LUNGS: Decreased breath sounds bilaterally. HEART: Regular. ABDOMEN: Soft, nontender. BACK: Range of motion is decreased in flexion and extension. CVA tenderness noted. EXTREMITIES: Upper and lower extremity range of motion is full in all directions. No cyanosis. No clubbing. No edema. Sensory is intact. Reflexes are not obtainable. No adenopathy. ASSESSMENT AND PLAN: The patient is a 53-year-old male with right-sided flank pain, kidney stone. The patient will be continued on [place] as needed, scheduled for lithotripsy with Dr. Mercado, no complications. The patient was discussed with Dr. Lopez and Dr. Lopez concurred. We will follow up with the patient. Thank you very much for the courtesy of this consultation. Azul Lopez M.D. TRIP Thomas DR: Roshni JOB#: [id number] CC:
[2019-08-04] MEDS: HYDROcodone/Acetamin 5/325 tab ORAL PRN (19:50)
[2019-08-04 20:00] VITALS: BP 123/77
--- NOTE | 2019-08-04 22:15 | Consultation ---
DATE OF CONSULTATION: 08/04/2019 INFECTIOUS DISEASES CONSULTATION CONSULTING PHYSICIAN: Fortino Conde MD PRIMARY ATTENDING PHYSICIAN: Leandro Mesa MD REASON FOR CONSULTATION: UTI with pyelonephritis. HISTORY OF PRESENT ILLNESS: A 53-year-old male admitted this morning complaining of right flank pain that was sudden onset. CT scan of the abdomen and pelvis showed partially obstructing stone in the right ureter. The patient also has some perinephric stranding and leukocytosis of 14.8 at the time of admission. PAST MEDICAL HISTORY: Significant. MEDICATIONS: Getting cefazolin, Colace, Protonix, ibuprofen, [place], Zofran, clonidine. SOCIAL HISTORY: Single. Denies alcohol, drug abuse, or smoking. REVIEW OF SYSTEMS: Limited. The patient is very drowsy because of pain medications. No fever. No coughing. No pain. No hematuria. PHYSICAL EXAMINATION: VITAL SIGNS: Temperature is 98.3, pulse 92, blood pressure 127/81. GENERAL APPEARANCE: No acute distress. HEAD AND NECK: [place] conjunctivae. HEART: Normal rate LUNGS: Clear. ABDOMEN: Soft and nontender. No CVA tenderness. EXTREMITIES: No edema. NEUROLOGIC: Awake, alert, verbal. LABORATORY AND DIAGNOSTIC DATA: WBC today is 9, hemoglobin 13.2, hematocrit 41, platelets 278. Sodium 141, potassium 2.5, chloride 106, bicarb 25, BUN 20, creatinine 1.1. Creatinine at the time of admission was 1.4. Urine toxicology was negative. UA shows hematuria with rbc's too numerous to count, ketones 2+, protein 1+. CT scan of the chest, abdomen, and pelvis showed no acute cardiopulmonary disease, 7 mm partially obstructing calculus at the right mid ureter, upstream dilatation of the collecting system, left renal enlargement, and perinephric stranding. IMPRESSION: Right ureteral stone resulting in hematuria and dilation of upstream collecting system, acute renal failure, may have pyelonephritis. RECOMMENDATION: Agree with cefazolin for now. The patient will have lithotripsy tomorrow. At the end of my exam, I thank Dr. Mesa for involving me in the care of this patient. Fortino Conde M.D. DR: Bernice JOB#: [id number] CC: [place]
[2019-08-05] VITALS (14 sets, daily range): BP systolic 123–168; BP diastolic 75–115
--- NOTE | 2019-08-05 00:30 | History and Physical Report ---
DATE OF ADMISSION: 08/04/2019 HISTORY OF PRESENT ILLNESS: The patient being admitted for obstructive kidney stone. The patient was found to have 7 mm obstructing kidney stone. The patient also has history of hypertension, complaining of right flank pain for one day associated with vomiting for one day. The patient denies shortness of breath. Denies cough. Denies fever or chills. Denies any dysuria. PAST MEDICAL HISTORY: Significant for hemorrhoids and hypertension. MEDICATIONS: Cannot tell the name of the medications. ALLERGIES: No known allergies. FAMILY HISTORY: Noncontributory. SOCIAL HISTORY: He has history of smoking. Denies history of alcohol abuse. Denies history of drug abuse. PAST SURGICAL HISTORY: Hemorrhoid surgery, neck surgery, and ear surgery. REVIEW OF SYSTEMS: HEENT: Denies headaches. RESPIRATORY: Denies shortness of breath. Denies cough. CARDIOVASCULAR: Denies chest pain. GASTROINTESTINAL: Does have vomiting and nausea for one day and reports of right flank pain for one day. EXTREMITIES: Denies pain in lower extremities. CENTRAL NERVOUS SYSTEM: Denies change in vision or speech pattern. PHYSICAL EXAMINATION: VITAL SIGNS: Temperature is 98.2, pulse is 92, and blood pressure is 160/99. HEENT: PERRLA. NECK: Supple. No lymphadenopathy. CHEST: Clear to auscultation. CARDIOVASCULAR: Regular rate and rhythm. GASTROINTESTINAL: Soft and nontender. No organomegaly. Positive bowel sounds. EXTREMITIES: No edema. Moves all four extremities. NEUROLOGIC: Sensory intact to light touch. Reflexes equal on both sides. Moves all four extremities. LABORATORY DATA: WBC of 14.8, hemoglobin 14.2, and platelets of 312. Sodium 141, potassium of 3.9, chloride 104, BUN of 22, creatinine 1.4, and glucose of 123. ASSESSMENT AND PLAN: 1. 7 mm obstructing kidney stone. Dr. Ludin Mercado has been consulted to see the patient for that reason. 2. Hypertension. 3. Vomiting. 4. I have also consulted Dr. Fortino Conde, Dr. Toussaint, Dr. Lopez for pain management as well as for the management of azotemia and rule out any infectious etiology antibiotics if needed per Dr. Fortino Conde. Leandro Mesa M.D. DR: ECHO JOB#: [id number] CC:
[2019-08-05 05:47] LABS: EOSINOPHILS % (AUTO) 3.1 % (0.0-3.0); HEMATOCRIT 39.8 % (42.0-52.0); HEMOGLOBIN 12.5 G/DL (14.2-18.0); LYMPHOCYTES % (AUTO) 33.1 % (20.0-45.0); MEAN CORPUSCULAR VOLUME 90 FL (80-99); MONOCYTES % (AUTO) 9.6 % (1.0-10.0); NEUTROPHILS % (AUTO) 53.2 % (45.0-75.0); PLATELET COUNT 279 K/UL (150-450); RED BLOOD COUNT 4.42 M/UL (4.70-6.10); RED CELL DISTRIBUTION WIDTH 12.4 % (11.6-14.8); WHITE BLOOD COUNT 6.5 K/UL (4.8-10.8)
[2019-08-05] MEDS ORDERED: ceFAZolin 2gm/50ml Premix 50 ML IVPB SCH (06:00)
[2019-08-05 06:21] LABS: ALANINE AMINOTRANSFERASE 20 U/L (12-78); ALKALINE PHOSPHATASE 53 U/L (46-116); ANION GAP 7 mmol/L (5-15); ASPARTATE AMINO TRANSFERASE 20 U/L (15-37); BILIRUBIN,TOTAL 0.9 MG/DL (0.2-1.0); BLOOD UREA NITROGEN 15 mg/dL (7-18); CALCIUM 8.1 MG/DL (8.5-10.1); CARBON DIOXIDE 27 MMOL/L (21-32); CHLORIDE 107 MMOL/L (98-107); CHOLESTEROL 123 MG/DL (< 200); GAMMA GLUTAMYL TRANSPEPTIDASE 13 U/L (5-85); HDL CHOLESTEROL 35 MG/DL (40-60); PHOSPHORUS 3.5 MG/DL (2.5-4.9); POTASSIUM 3.6 MMOL/L (3.5-5.1); SODIUM 141 MMOL/L (136-145); TRIGLYCERIDES 94 MG/DL (30-150)
[2019-08-05] MEDS ORDERED: ceFAZolin 2gm/50ml Premix 50 ML IVPB ONE (08:00)
[2019-08-05] MEDS: Docusate 100mg cap ORAL SCH ×3 (09:16→17:03)
--- NOTE | 2019-08-05 09:59 | General Progress Note ---
Assessment/Plan Assessment/Plan: (1) Right sided flank pain (2) Kidney stone Patient to be continued on [place]. D/w Dr. Lopez and he concurred. Subjective Date patient seen: Aug 05, 2019 Time patient seen: 09:45 - am Allergies: Coded Allergies: No Known Allergies (Unverified , 07/12/19) Subjective REVIEW OF SYSTEMS: Denies rash, fever, chills, sweating, dizziness, drowsiness, sore throat, or change in weight. No shortness of breath or chest pain. No nausea, vomiting, diarrhea, blood in stool. No dysuria. SUBJECTIVE: He is in bed no pain waiting for procedure. No new complaints at this time. Objective Last 24 Hour Vital Signs Date Time Temp Pulse Resp B/P (MAP) Pulse Ox O2 Delivery O2 Flow Rate FiO2 08/05/19 08:00 98.1 67 18 129/81 (97) 98 08/05/19 04:00 98.1 73 16 125/79 (94) 97 08/05/19 00:00 98.2 68 16 128/75 (92) 97 08/04/19 21:00 Room Air 08/04/19 20:20 98.0 08/04/19 20:00 98.0 78 16 123/77 (92) 97 08/04/19 16:00 98.0 88 17 128/76 (93) 96 08/04/19 12:00 98.6 95 17 122/82 (95) 97 Intake and Output 08/04/19 08/05/19 19:00 07:00 Intake Total 500 ml 960 ml Output Total 1200 ml Balance -700 ml 960 ml Intake Oral 300 ml 360 ml IV Total 200 ml 600 ml Output Urine Total 1200 ml # Voids 2 3 Laboratory Tests 08/05/19 04:50: White Blood Count 6.5, Red Blood Count 4.42L, Hemoglobin 12.5L, Hematocrit 39.8L , Mean Corpuscular Volume 90, Mean Corpuscular Hemoglobin 28.3, Mean Corpuscular Hemoglobin Concent 31.5L, Red Cell Distribution Width 12.4, Platelet Count 279, Mean Platelet Volume 6.7, Neutrophils (%) (Auto) 53.2, Lymphocytes (%) (Auto) 33.1, Monocytes (%) (Auto) 9.6, Eosinophils (%) (Auto) 3.1H, Basophils (%) (Auto) 1.0, Sodium Level 141, Potassium Level 3.6, Chloride Level 107, Carbon Dioxide Level 27, Anion Gap 7, Blood Urea Nitrogen 15, Creatinine 1.0, Estimat Glomerular Filtration Rate > 60, Glucose Level 94, Hemoglobin A1c 6.7H, Uric Acid 5.0, Calcium Level 8.1L, Phosphorus Level 3.5, Magnesium Level 2.1, Total Bilirubin 0.9, Gamma Glutamyl Transpeptidase 13, Aspartate Amino Transf (AST/SGOT) 20, Alanine Aminotransferase (ALT/SGPT) 20, Alkaline Phosphatase 53, C-Reactive Protein, Quantitative 0.8, Pro-B-Type Natriuretic Peptide 75, Total Protein 6.1L, Albumin 3.0L, Globulin 3.1, Albumin/ Globulin Ratio 1.0, Triglycerides Level 94, Cholesterol Level 123, LDL Cholesterol 71, HDL Cholesterol 35L, Cholesterol/HDL Ratio 3.5, Vitamin B12 Level 252, Folate 21.8, Thyroid Stimulating Hormone (TSH) 1.369 Height (Feet): 5 Height (Inches): 3.00 Weight (Pounds): 170 Objective GENERAL: Alert, awake, and oriented. LUNGS: Decreased breath sounds bilaterally. HEART: Regular. ABDOMEN: Soft, nontender. EXTREMITIES: No cyanosis. No clubbing. No edema. NEURO: No changes. Leonardo Joseph Aug 05, 2019 09:58
[2019-08-05] MEDS: D5 1/2NS w/KCl 20mEq 1,000 ML IV SCH (10:57)
[2019-08-05] MEDS ORDERED: Iothalamate Meglumine 60% 30ML INJ ONE (12:17)
[2019-08-05] MEDS ORDERED: LR 1000ml 1,000 ML IVLG SCH (12:23)
[2019-08-05] MEDS ORDERED: HYDROcodone/Acetamin 7.5/325 tab ORAL PRN (12:30)
[2019-08-05] MEDS ORDERED: Hydromorphone 0.5mg/0.5ml inj IVP PRN (12:30)
[2019-08-05] MEDS ORDERED: Midazolam 2mg/2ml Inj IVP PRN (12:30)
[2019-08-05] MEDS ORDERED: fentaNYL 100 mcg/2 mL IV PRN (12:30)
[2019-08-05] MEDS ORDERED: Metoclopramide 10mg/2ml Inj IVP PRN (12:30)
[2019-08-05] MEDS ORDERED: DiphenhydrAMINE 50mg/ml Inj IVP PRN (12:30)
[2019-08-05] MEDS ORDERED: Atropine Sulfate 0.4mg/ml inj IVP PRN (12:30)
[2019-08-05] MEDS ORDERED: Meperidine 25mg/0.5ml Inj (FOR RIGORS ONLY) IV PRN (12:30)
[2019-08-05] MEDS ORDERED: LORazepam Inj 2mg/ml 1ml IV PRN (12:30)
[2019-08-05] MEDS ORDERED: HYDROcodone/Acetamin 5/325 tab ORAL PRN (12:30)
[2019-08-05] MEDS ORDERED: oxyCODONE HCL/Acetaminophen 5/325mg ORAL PRN (12:30)
--- NOTE | 2019-08-05 12:32 | Immediate Post-Op Evaluation ---
Immediate Post-Op Evalulation Immediate Post-Op Evalulation Procedure: ESWL, R Stent Placement Date of Evaluation: Aug 05, 2019 Time of Evaluation: 15:22 IV Fluids: 700 LR Blood Products: 0 Estimated Blood Loss: 25 Urinary Output: 0 Blood Pressure Systolic: 156 Blood Pressure Diastolic: 115 Pulse Rate: 76 Respiratory Rate: 16 O2 Sat by Pulse Oximetry: 100 Temperature (Fahrenheit): 98.4 Pain Score (1-10): 2 Nausea: No Vomiting: No Complications 0 Patient Status: awake, reacts, patent, extubated, none Hydration Status: adequate Dru Gram Ancef IV Given Within 1 Hr of Incision: Yes Time Given: 14:06 Marco Jefferson MD Aug 05, 2019 12:32
[2019-08-05] MEDS ORDERED: Lidocaine 1% MPF 10mg/ml 5ml ONE (12:35)
[2019-08-05] MEDS ORDERED: Midazolam 2mg/2ml Inj ONE (12:38)
[2019-08-05] MEDS ORDERED: Neostigmine 1mg/ml 10ml Inj ONE (13:00)
[2019-08-05] MEDS ORDERED: Sterile Water Irrig 2000ml IRRIG ONE (13:00)
[2019-08-05] MEDS ORDERED: Rocuronium Bromide 100mg/10ml Inj IV ONE (13:00)
[2019-08-05] MEDS ORDERED: LR 1000ml ONE (13:00)
[2019-08-05] MEDS ORDERED: Sterile Water Irrig 1000ml IRRIG ONE (13:00)
[2019-08-05] MEDS ORDERED: NS Irrig 1000ml ONE (13:00)
[2019-08-05] MEDS ORDERED: NS Irrig 4000ml IRRIG ONE ×2 (13:00→14:31)
--- NOTE | 2019-08-05 13:01 | Nephrology Progress Note ---
Assessment/Plan Problem List: (1) Kidney stone on right side (2) Hypertension Assessment Hypertension, Kidney stone on right side CT iMPRESSION: 7 mm partially obstructing calculus located at the right mid ureter. Mild upstream dilatation of the collecting system. There is suggestion of mild urothelial enhancement. There is left renal enlargement and perinephric stranding/small fluid. These findings are likely obstructive Plan Patient is going for urological procedure by Dr. Mercado today at 1 PM Patient is currently n.p.o. On IV fluid We started Colace and Protonix p.o. PRN blood pressure medication if blood pressure goes over 160 systolic Per orders Subjective ROS Limited/Unobtainable: No Constitutional: Reports: malaise Objective Objective Last 24 Hour Vital Signs Date Time Temp Pulse Resp B/P (MAP) Pulse Ox O2 Delivery O2 Flow Rate FiO2 08/05/19 12:00 97.0 60 18 136/93 (107) 98 08/05/19 09:00 Room Air 08/05/19 08:00 98.1 67 18 129/81 (97) 98 08/05/19 04:00 98.1 73 16 125/79 (94) 97 08/05/19 00:00 98.2 68 16 128/75 (92) 97 08/04/19 21:00 Room Air 08/04/19 20:20 98.0 08/04/19 20:00 98.0 78 16 123/77 (92) 97 08/04/19 16:00 98.0 88 17 128/76 (93) 96 Intake and Output 08/04/19 08/05/19 19:00 07:00 Intake Total 500 ml 960 ml Output Total 1200 ml Balance -700 ml 960 ml Intake Oral 300 ml 360 ml IV Total 200 ml 600 ml Output Urine Total 1200 ml # Voids 2 3 Current Medications Medications (Trade) Dose Ordered Sig/Bret Route PRN Reason Start Time Stop Time Status Last Admin Dose Admin Acetaminophen/ Hydrocodone Bitart ([place] 5/325) 1 tab Q1H PRN ORAL Mild Pain (Pain Scale 1-3) 08/05/19 12:30 08/05/19 18:00 Acetaminophen/ Hydrocodone Bitart ([place] 5/325) 1 tab Q6H PRN ORAL For Pain 08/04/19 04:45 08/11/19 04:44 08/04/19 19:50 Acetaminophen/ Hydrocodone Bitart ([place] 7.5/325) 1 tab Q1H PRN ORAL Moderate Pain (Pain Scale 4-6) 08/05/19 12:30 08/05/19 18:00 Al Hydroxide/Mg Hydroxide (Mylanta) 15 ml Q1H PRN ORAL gi upset 08/05/19 12:30 08/05/19 18:00 Atropine Sulfate (Atropine 0.4mg/ ml) 0.5 mg Q5M PRN IVP HR<40 08/05/19 12:30 08/05/19 18:00 Clonidine HCl (Catapres Tab) 0.1 mg Q6H PRN ORAL For High Blood Pressure 08/04/19 04:45 11/02/19 04:44 Dextrose/ Electrolytes 1,000 ml @ 50 mls/hr Q20H IV 08/04/19 15:00 09/03/19 14:59 08/05/19 10:57 Diphenhydramine HCl (Benadryl) 25 mg Q15M PRN IVP Itching 08/05/19 12:30 08/05/19 18:00 Docusate Sodium (Colace) 100 mg THREE TIMES A DAY ORAL 08/04/19 18:00 09/03/19 17:59 08/05/19 09:16 Fentanyl Citrate (Sublimaze 100 mcg/2 mL) 25 mcg Q10M PRN IV Moderate Pain (Pain Scale 4-6) 08/05/19 12:30 08/05/19 18:00 Hydralazine HCl (Apresoline) 5 mg Q30M PRN IV SBP>160 / DBP>90 08/05/19 12:30 08/05/19 18:00 Hydromorphone HCl (Dilaudid) 0.5 mg Q15M PRN IVP Severe Pain (Pain Scale 7-10) 08/05/19 12:30 08/05/19 18:00 Ibuprofen (Motrin) 600 mg Q6H PRN ORAL Mild Pain (Pain Scale 1-3) 08/04/19 10:45 09/03/19 04:44 Iohexol (Omnipaque 350 100ml) 100 ml NOW PRN INJ Radiology Procedure 08/03/19 23:00 08/05/19 22:57 Iohexol (Omnipaque 350 100ml) 100 ml NOW PRN INJ Radiology Procedure 08/03/19 23:00 08/05/19 22:57 Lactated Ringer's 1,000 ml @ 10 mls/hr Q24H IVLG 08/05/19 12:23 08/05/19 18:00 Lorazepam (Ativan 2mg/ml 1ml) 1 mg Q15M PRN IV For Anxiety 08/05/19 12:30 08/05/19 18:00 Meperidine HCl (Demerol) 25 mg Q5M PRN IV SHIVERING.MAY REPEAT X 1 08/05/19 12:30 08/05/19 18:00 Metoclopramide HCl (Reglan) 10 mg Q1H PRN IVP Nausea & Vomiting 08/05/19 12:30 08/05/19 18:00 Midazolam HCl (Versed 2mg/2ml vial) 1 mg Q15M PRN IVP For Anxiety 08/05/19 12:30 08/05/19 18:00 Ondansetron HCl (Zofran) 4 mg Q1H PRN IVP Nausea & Vomiting 08/05/19 12:30 08/05/19 18:00 Ondansetron HCl (Zofran) 4 mg Q6H PRN IVP Nausea & Vomiting 08/04/19 04:45 09/03/19 04:44 Oxycodone/ Acetaminophen (Percocet 5-325) 1 tab Q1H PRN ORAL Severe Pain (Pain Scale 7-10) 08/05/19 12:30 08/05/19 18:00 Pantoprazole (Protonix) 40 mg EVERY 12 HOURS ORAL 08/04/19 14:15 09/03/19 14:14 08/05/19 09:16 Laboratory Tests 08/05/19 04:50: White Blood Count 6.5, Red Blood Count 4.42L, Hemoglobin 12.5L, Hematocrit 39.8L , Mean Corpuscular Volume 90, Mean Corpuscular Hemoglobin 28.3, Mean Corpuscular Hemoglobin Concent 31.5L, Red Cell Distribution Width 12.4, Platelet Count 279, Mean Platelet Volume 6.7, Neutrophils (%) (Auto) 53.2, Lymphocytes (%) (Auto) 33.1, Monocytes (%) (Auto) 9.6, Eosinophils (%) (Auto) 3.1H, Basophils (%) (Auto) 1.0, Sodium Level 141, Potassium Level 3.6, Chloride Level 107, Carbon Dioxide Level 27, Anion Gap 7, Blood Urea Nitrogen 15, Creatinine 1.0, Estimat Glomerular Filtration Rate > 60, Glucose Level 94, Hemoglobin A1c 6.7H, Uric Acid 5.0, Calcium Level 8.1L, Phosphorus Level 3.5, Magnesium Level 2.1, Total Bilirubin 0.9, Gamma Glutamyl Transpeptidase 13, Aspartate Amino Transf (AST/SGOT) 20, Alanine Aminotransferase (ALT/SGPT) 20, Alkaline Phosphatase 53, C-Reactive Protein, Quantitative 0.8, Pro-B-Type Natriuretic Peptide 75, Total Protein 6.1L, Albumin 3.0L, Globulin 3.1, Albumin/ Globulin Ratio 1.0, Triglycerides Level 94, Cholesterol Level 123, LDL Cholesterol 71, HDL Cholesterol 35L, Cholesterol/HDL Ratio 3.5, Vitamin B12 Level 252, Folate 21.8, Thyroid Stimulating Hormone (TSH) 1.369 Height (Feet): 5 Height (Inches): 3.00 Weight (Pounds): 170 General Appearance: no apparent distress Cardiovascular: normal rate Respiratory/Chest: lungs clear Abdomen: soft Boogie Toussaint MD Aug 05, 2019 13:01
--- NOTE | 2019-08-05 13:30 | Pre-Procedure Note/Attestation ---
Pre-Procedure Note/Attestation Complete Prior to Procedure Planned Procedure: right Procedure Narrative: eswl rirs right Indications for Procedure Pre-Operative Diagnosis: right ureteral stone Attestation I attest that I discussed the nature of the procedure; its benefits; risks and complications; and alternatives (and the risks and benefits of such alternatives ), prior to the procedure, with the patient (or the patient's legal termite control representative). I attest that, if there was a reasonable possibility of needing a blood transfusion, the patient (or the patient's legal termite control representative) was given the [facility] standardized written summary, pursuant to the Mikael Mike Blood Safety Act ([place] Health and Safety Code # 1645, as amended). I attest that I re-evaluated the patient just prior to the surgery and that there has been no change in the patient's H&P, except as documented below: Ludin Mercado MD Aug 05, 2019 13:30
[2019-08-05] MEDS ORDERED: Glycopyrrolate 0.2mg/ml 1ml Vial ONE (13:39)
--- NOTE | 2019-08-05 14:26 | Brief Operative Note ---
Immediate Post Operative Note Operative Note Pre-op Diagnosis: right ureteral stone Procedure: ESWL RIRS Right stent placement Post-op Diagnosis: same Post-op Diagnosis: same as pre-op Surgeon: Floyd Mercado Anesthesia: general Specimen: none Complications: none Condition: stable Fluids: 500 Estimated Blood Loss: minimal Implant(s) used?: No Ludin Mercado MD Aug 05, 2019 14:26
[2019-08-05 16:28] LABS: ANION GAP 8 mmol/L (5-15); BLOOD UREA NITROGEN 14 mg/dL (7-18); CALCIUM 8.8 MG/DL (8.5-10.1); CARBON DIOXIDE 28 MMOL/L (21-32); CHLORIDE 105 MMOL/L (98-107); CREATININE 1.1 MG/DL (0.55-1.30); POTASSIUM 3.5 MMOL/L (3.5-5.1); SODIUM 141 MMOL/L (136-145)
[2019-08-05 16:41] LABS: HEMATOCRIT 44.3 % (42.0-52.0); HEMOGLOBIN 14.1 G/DL (14.2-18.0); MEAN CORPUSCULAR VOLUME 90 FL (80-99); PLATELET COUNT 281 K/UL (150-450); RED BLOOD COUNT 4.93 M/UL (4.70-6.10); RED CELL DISTRIBUTION WIDTH 12.5 % (11.6-14.8); WHITE BLOOD COUNT 11.6 K/UL (4.8-10.8)
[2019-08-05] MEDS: HYDROcodone/Acetamin 5/325 tab ORAL PRN (17:03)
--- NOTE | 2019-08-05 21:37 | General Progress Note ---
Assessment/Plan Problem List: (1) Back pain ICD Codes: M54.9 - Dorsalgia, unspecified SNOMED: 371856535 (2) Hypertension ICD Codes: I10 - Essential (primary) hypertension SNOMED: 99693333 Qualifiers: Qualified Codes: I10 - Essential (primary) hypertension (3) Kidney stone on right side ICD Codes: N20.0 - Calculus of kidney SNOMED: 74129632 Assessment/Plan: borderline k kidney stone treatment per dr mckeon afebrile flank pain is improving Subjective ROS Limited/Unobtainable: Yes Allergies: Coded Allergies: No Known Allergies (Unverified , 07/12/19) Objective Last 24 Hour Vital Signs Date Time Temp Pulse Resp B/P (MAP) Pulse Ox O2 Delivery O2 Flow Rate FiO2 08/05/19 18:00 79.9 86 18 123/83 (96) 97 08/05/19 17:33 97.3 08/05/19 17:00 98.0 82 18 127/84 (98) 97 08/05/19 16:44 97.3 73 20 126/81 100 Nasal Cannula 3 08/05/19 16:15 82 15 135/85 99 Nasal Cannula 3 08/05/19 16:00 70 16 127/88 98 Nasal Cannula 3 08/05/19 15:46 169/111 08/05/19 15:45 75 18 157/108 97 Nasal Cannula 3 08/05/19 15:30 72 15 168/102 98 Nasal Cannula 3 08/05/19 15:20 68 20 166/107 100 Simple Mask 6 08/05/19 15:10 98.1 76 16 156/115 100 Simple Mask 6 08/05/19 15:07 76 16 100 08/05/19 12:00 97.0 60 18 136/93 (107) 98 08/05/19 09:00 Room Air 08/05/19 08:00 98.1 67 18 129/81 (97) 98 08/05/19 04:00 98.1 73 16 125/79 (94) 97 08/05/19 00:00 98.2 68 16 128/75 (92) 97 Intake and Output 08/04/19 08/05/19 19:00 07:00 Intake Total 500 ml 960 ml Output Total 1200 ml Balance -700 ml 960 ml Intake Oral 300 ml 360 ml IV Total 200 ml 600 ml Output Urine Total 1200 ml # Voids 2 3 Laboratory Tests 08/05/19 04:50: White Blood Count 6.5, Red Blood Count 4.42L, Hemoglobin 12.5L, Hematocrit 39.8L , Mean Corpuscular Volume 90, Mean Corpuscular Hemoglobin 28.3, Mean Corpuscular Hemoglobin Concent 31.5L, Red Cell Distribution Width 12.4, Platelet Count 279, Mean Platelet Volume 6.7, Neutrophils (%) (Auto) 53.2, Lymphocytes (%) (Auto) 33.1, Monocytes (%) (Auto) 9.6, Eosinophils (%) (Auto) 3.1H, Basophils (%) (Auto) 1.0, Sodium Level 141, Potassium Level 3.6, Chloride Level 107, Carbon Dioxide Level 27, Anion Gap 7, Blood Urea Nitrogen 15, Creatinine 1.0, Estimat Glomerular Filtration Rate > 60, Glucose Level 94, Hemoglobin A1c 6.7H, Uric Acid 5.0, Calcium Level 8.1L, Phosphorus Level 3.5, Magnesium Level 2.1, Total Bilirubin 0.9, Gamma Glutamyl Transpeptidase 13, Aspartate Amino Transf (AST/SGOT) 20, Alanine Aminotransferase (ALT/SGPT) 20, Alkaline Phosphatase 53, C-Reactive Protein, Quantitative 0.8, Pro-B-Type Natriuretic Peptide 75, Total Protein 6.1L, Albumin 3.0L, Globulin 3.1, Albumin/ Globulin Ratio 1.0, Triglycerides Level 94, Cholesterol Level 123, LDL Cholesterol 71, HDL Cholesterol 35L, Cholesterol/HDL Ratio 3.5, Vitamin B12 Level 252, Folate 21.8, Thyroid Stimulating Hormone (TSH) 1.369 08/05/19 15:50: White Blood Count 11.6#H, Red Blood Count 4.93, Hemoglobin 14.1L, Hematocrit 44.3, Mean Corpuscular Volume 90, Mean Corpuscular Hemoglobin 28.5, Mean Corpuscular Hemoglobin Concent 31.8L, Red Cell Distribution Width 12.5, Platelet Count 281, Mean Platelet Volume 6.5, Neutrophils (%) (Auto) , Lymphocytes (%) (Auto) , Monocytes (%) (Auto) , Eosinophils (%) (Auto) , Basophils (%) (Auto) , Sodium Level 141, Potassium Level 3.5, Chloride Level 105 , Carbon Dioxide Level 28, Anion Gap 8, Blood Urea Nitrogen 14, Creatinine 1.1, Estimat Glomerular Filtration Rate > 60, Glucose Level 110H, Calcium Level 8.8, Differential Total Cells Counted 100, Neutrophils % (Manual) 83H, Lymphocytes % (Manual) 15L, Monocytes % (Manual) 1, Eosinophils % (Manual) 1, Basophils % ( Manual) 0, Band Neutrophils 0, Platelet Estimate Adequate, Platelet Morphology Normal, Red Blood Cell Morphology Normal Height (Feet): 5 Height (Inches): 3.00 Weight (Pounds): 170 Leandro Mesa MD Aug 05, 2019 21:37
[2019-08-06] VITALS: BP 133/80
[2019-08-06] MEDS: HYDROcodone/Acetamin 5/325 tab ORAL PRN ×2 (01:34→20:59)
[2019-08-06 04:00] VITALS: BP 117/72
[2019-08-06 08:00] VITALS: BP 124/81
[2019-08-06] MEDS: Docusate 100mg cap ORAL SCH ×3 (08:22→18:55)
[2019-08-06] MEDS: D5 1/2NS w/KCl 20mEq 1,000 ML IV SCH (09:10)
--- NOTE | 2019-08-06 09:48 | Infectious Diseases Prog Note ---
Assessment/Plan Assessment/Plan IMPRESSION: Right ureteral stone s/p ESWL & ureteral stent placement Acute renal failure resolving, ? pyelonephritis in left side RECOMMENDATION: start on PO Cipro Subjective ROS Limited/Unobtainable: No Constitutional: Reports: no symptoms Respiratory: Reports: no symptoms Gastrointestinal/Abdominal: Reports: no symptoms Genitourinary: Reports: hematuria, other - had ESWL & stent placement yesterday Allergies: Coded Allergies: No Known Allergies (Unverified , 07/12/19) Objective Vital Signs Last 24 Hour Vital Signs Date Time Temp Pulse Resp B/P (MAP) Pulse Ox O2 Delivery O2 Flow Rate FiO2 08/06/19 09:00 Nasal Cannula 2.0 08/06/19 08:00 98.2 85 18 124/81 (95) 95 08/06/19 04:00 98.2 67 18 117/72 (87) 98 08/06/19 00:00 97.6 97 18 133/80 (97) 98 08/05/19 21:00 Nasal Cannula 2.0 08/05/19 20:00 97.4 98 16 130/82 (98) 98 08/05/19 18:00 79.9 86 18 123/83 (96) 97 08/05/19 17:33 97.3 08/05/19 17:00 98.0 82 18 127/84 (98) 97 08/05/19 16:44 97.3 73 20 126/81 100 Nasal Cannula 3 08/05/19 16:15 82 15 135/85 99 Nasal Cannula 3 08/05/19 16:00 70 16 127/88 98 Nasal Cannula 3 08/05/19 15:46 169/111 08/05/19 15:45 75 18 157/108 97 Nasal Cannula 3 08/05/19 15:30 72 15 168/102 98 Nasal Cannula 3 08/05/19 15:20 68 20 166/107 100 Simple Mask 6 08/05/19 15:10 98.1 76 16 156/115 100 Simple Mask 6 08/05/19 15:07 76 16 100 08/05/19 12:00 97.0 60 18 136/93 (107) 98 Height (Feet): 5 Height (Inches): 3.00 Weight (Pounds): 170 General Appearance: no acute distress HEENT: mucous membranes moist Respiratory/Chest: lungs clear Cardiovascular: normal rate Abdomen: soft, non tender Genitourinary: other - Barton catheter, gross hematuria Extremities: no edema Neurologic/Psychiatric: alert, oriented x 3, responsive Microbiology Date/Time Source Procedure Growth Status 08/04/19 13:30 Nasopharynx Coronavirus COVID-19 PCR ([facility]) - Final Complete Laboratory Tests Test 08/05/19 15:50 White Blood Count 11.6 K/UL (4.8-10.8) #H Red Blood Count 4.93 M/UL (4.70-6.10) Hemoglobin 14.1 G/DL (14.2-18.0) L Hematocrit 44.3 % (42.0-52.0) Mean Corpuscular Volume 90 FL (80-99) Mean Corpuscular Hemoglobin 28.5 PG (27.0-31.0) Mean Corpuscular Hemoglobin Concent 31.8 G/DL (32.0-36.0) L Red Cell Distribution Width 12.5 % (11.6-14.8) Platelet Count 281 K/UL (150-450) Mean Platelet Volume 6.5 FL (6.5-10.1) Neutrophils (%) (Auto) % (45.0-75.0) Lymphocytes (%) (Auto) % (20.0-45.0) Monocytes (%) (Auto) % (1.0-10.0) Eosinophils (%) (Auto) % (0.0-3.0) Basophils (%) (Auto) % (0.0-2.0) Differential Total Cells Counted 100 Neutrophils % (Manual) 83 % (45-75) H Lymphocytes % (Manual) 15 % (20-45) L Monocytes % (Manual) 1 % (1-10) Eosinophils % (Manual) 1 % (0-3) Basophils % (Manual) 0 % (0-2) Band Neutrophils 0 % (0-8) Platelet Estimate Adequate Platelet Morphology Normal Red Blood Cell Morphology Normal Sodium Level 141 MMOL/L (136-145) Potassium Level 3.5 MMOL/L (3.5-5.1) Chloride Level 105 MMOL/L (98-107) Carbon Dioxide Level 28 MMOL/L (21-32) Anion Gap 8 mmol/L (5-15) Blood Urea Nitrogen 14 mg/dL (7-18) Creatinine 1.1 MG/DL (0.55-1.30) Estimat Glomerular Filtration Rate > 60 mL/min (>60) Glucose Level 110 MG/DL (74-106) H Calcium Level 8.8 MG/DL (8.5-10.1) Current Medications Medications (Trade) Dose Ordered Sig/Bret Route PRN Reason Start Time Stop Time Status Last Admin Dose Admin Acetaminophen/ Hydrocodone Bitart ([place] 5/325) 1 tab Q6H PRN ORAL For Pain 08/04/19 04:45 08/11/19 04:44 08/06/19 01:34 Clonidine HCl (Catapres Tab) 0.1 mg Q6H PRN ORAL For High Blood Pressure 08/04/19 04:45 11/02/19 04:44 Dextrose/ Electrolytes 1,000 ml @ 50 mls/hr Q20H IV 08/04/19 15:00 09/03/19 14:59 08/06/19 09:10 Docusate Sodium (Colace) 100 mg THREE TIMES A DAY ORAL 08/04/19 18:00 09/03/19 17:59 08/06/19 08:22 Ibuprofen (Motrin) 600 mg Q6H PRN ORAL Mild Pain (Pain Scale 1-3) 08/04/19 10:45 09/03/19 04:44 Ondansetron HCl (Zofran) 4 mg Q6H PRN IVP Nausea & Vomiting 08/04/19 04:45 09/03/19 04:44 Pantoprazole (Protonix) 40 mg EVERY 12 HOURS ORAL 08/04/19 14:15 09/03/19 14:14 08/06/19 08:22 Fortino Conde MD Aug 06, 2019 09:48
[2019-08-06] MEDS: Ciprofloxacin 500mg tab ORAL SCH ×2 (10:16→20:55)
--- NOTE | 2019-08-06 10:59 | Nephrology Progress Note ---
Assessment/Plan Problem List: (1) Kidney stone on right side (2) Hypertension Assessment Hypertension, Kidney stone on right side CT iMPRESSION: 7 mm partially obstructing calculus located at the right mid ureter. Mild upstream dilatation of the collecting system. There is suggestion of mild urothelial enhancement. There is left renal enlargement and perinephric stranding/small fluid. These findings are likely obstructive Plan Patient had urological procedure by Dr. Mercado yesterday Status qou, Lab reviewed. On IV fluid We started Colace and Protonix p.o. PRN blood pressure medication if blood pressure goes over 160 systolic Per orders Subjective ROS Limited/Unobtainable: No Constitutional: Reports: malaise Objective Objective Last 24 Hour Vital Signs Date Time Temp Pulse Resp B/P (MAP) Pulse Ox O2 Delivery O2 Flow Rate FiO2 08/06/19 09:00 Nasal Cannula 2.0 08/06/19 08:00 98.2 85 18 124/81 (95) 95 08/06/19 04:00 98.2 67 18 117/72 (87) 98 08/06/19 00:00 97.6 97 18 133/80 (97) 98 08/05/19 21:00 Nasal Cannula 2.0 08/05/19 20:00 97.4 98 16 130/82 (98) 98 08/05/19 18:00 79.9 86 18 123/83 (96) 97 08/05/19 17:33 97.3 08/05/19 17:00 98.0 82 18 127/84 (98) 97 08/05/19 16:44 97.3 73 20 126/81 100 Nasal Cannula 3 08/05/19 16:15 82 15 135/85 99 Nasal Cannula 3 08/05/19 16:00 70 16 127/88 98 Nasal Cannula 3 08/05/19 15:46 169/111 08/05/19 15:45 75 18 157/108 97 Nasal Cannula 3 08/05/19 15:30 72 15 168/102 98 Nasal Cannula 3 08/05/19 15:20 68 20 166/107 100 Simple Mask 6 08/05/19 15:10 98.1 76 16 156/115 100 Simple Mask 6 08/05/19 15:07 76 16 100 08/05/19 12:00 97.0 60 18 136/93 (107) 98 Intake and Output 08/05/19 08/06/19 19:00 07:00 Intake Total 550 ml Output Total 1950 ml 550 ml Balance -1400 ml -550 ml Intake Oral 400 ml IV Total 150 ml Output Urine Total 1950 ml 550 ml # Voids 1 Laboratory Tests 08/05/19 15:50: White Blood Count 11.6#H, Red Blood Count 4.93, Hemoglobin 14.1L, Hematocrit 44.3, Mean Corpuscular Volume 90, Mean Corpuscular Hemoglobin 28.5, Mean Corpuscular Hemoglobin Concent 31.8L, Red Cell Distribution Width 12.5, Platelet Count 281, Mean Platelet Volume 6.5, Neutrophils (%) (Auto) , Lymphocytes (%) (Auto) , Monocytes (%) (Auto) , Eosinophils (%) (Auto) , Basophils (%) (Auto) , Differential Total Cells Counted 100, Neutrophils % ( Manual) 83H, Lymphocytes % (Manual) 15L, Monocytes % (Manual) 1, Eosinophils % ( Manual) 1, Basophils % (Manual) 0, Band Neutrophils 0, Platelet Estimate Adequate, Platelet Morphology Normal, Red Blood Cell Morphology Normal, Sodium Level 141, Potassium Level 3.5, Chloride Level 105, Carbon Dioxide Level 28, Anion Gap 8, Blood Urea Nitrogen 14, Creatinine 1.1, Estimat Glomerular Filtration Rate > 60, Glucose Level 110H, Calcium Level 8.8 Height (Feet): 5 Height (Inches): 3.00 Weight (Pounds): 170 General Appearance: no apparent distress Cardiovascular: normal rate Respiratory/Chest: lungs clear Abdomen: soft Genitourinary/Rectal: other - Barton with bloody urine Boogie Toussaint MD Aug 06, 2019 10:59
[2019-08-06 12:00] VITALS: BP 118/74
--- NOTE | 2019-08-06 13:02 | General Progress Note ---
Assessment/Plan Assessment/Plan: (1) Right sided flank pain (2) Kidney stone Patient to be continued on [place]. D/w Dr. Lopez and he concurred. Subjective Date patient seen: Aug 06, 2019 Time patient seen: 12:30 - pm Allergies: Coded Allergies: No Known Allergies (Unverified , 07/12/19) Subjective REVIEW OF SYSTEMS: Denies rash, fever, chills, sweating, dizziness, drowsiness, sore throat, or change in weight. No shortness of breath or chest pain. No nausea, vomiting, diarrhea, blood in stool. No dysuria. SUBJECTIVE: Patient reports pain at a moderate level and tolerated on the norco. He is s/p lithotripsy. No new complaints at this time. Objective Last 24 Hour Vital Signs Date Time Temp Pulse Resp B/P (MAP) Pulse Ox O2 Delivery O2 Flow Rate FiO2 08/06/19 12:00 97.1 87 19 118/74 (89) 99 08/06/19 09:00 Nasal Cannula 2.0 08/06/19 08:00 98.2 85 18 124/81 (95) 95 08/06/19 04:00 98.2 67 18 117/72 (87) 98 08/06/19 00:00 97.6 97 18 133/80 (97) 98 08/05/19 21:00 Nasal Cannula 2.0 08/05/19 20:00 97.4 98 16 130/82 (98) 98 08/05/19 18:00 79.9 86 18 123/83 (96) 97 08/05/19 17:33 97.3 08/05/19 17:00 98.0 82 18 127/84 (98) 97 08/05/19 16:44 97.3 73 20 126/81 100 Nasal Cannula 3 08/05/19 16:15 82 15 135/85 99 Nasal Cannula 3 08/05/19 16:00 70 16 127/88 98 Nasal Cannula 3 08/05/19 15:46 169/111 08/05/19 15:45 75 18 157/108 97 Nasal Cannula 3 08/05/19 15:30 72 15 168/102 98 Nasal Cannula 3 08/05/19 15:20 68 20 166/107 100 Simple Mask 6 08/05/19 15:10 98.1 76 16 156/115 100 Simple Mask 6 08/05/19 15:07 76 16 100 Intake and Output 08/05/19 08/06/19 19:00 07:00 Intake Total 550 ml Output Total 1950 ml 550 ml Balance -1400 ml -550 ml Intake Oral 400 ml IV Total 150 ml Output Urine Total 1950 ml 550 ml # Voids 1 Laboratory Tests 08/05/19 15:50: White Blood Count 11.6#H, Red Blood Count 4.93, Hemoglobin 14.1L, Hematocrit 44.3, Mean Corpuscular Volume 90, Mean Corpuscular Hemoglobin 28.5, Mean Corpuscular Hemoglobin Concent 31.8L, Red Cell Distribution Width 12.5, Platelet Count 281, Mean Platelet Volume 6.5, Neutrophils (%) (Auto) , Lymphocytes (%) (Auto) , Monocytes (%) (Auto) , Eosinophils (%) (Auto) , Basophils (%) (Auto) , Differential Total Cells Counted 100, Neutrophils % ( Manual) 83H, Lymphocytes % (Manual) 15L, Monocytes % (Manual) 1, Eosinophils % ( Manual) 1, Basophils % (Manual) 0, Band Neutrophils 0, Platelet Estimate Adequate, Platelet Morphology Normal, Red Blood Cell Morphology Normal, Sodium Level 141, Potassium Level 3.5, Chloride Level 105, Carbon Dioxide Level 28, Anion Gap 8, Blood Urea Nitrogen 14, Creatinine 1.1, Estimat Glomerular Filtration Rate > 60, Glucose Level 110H, Calcium Level 8.8 Height (Feet): 5 Height (Inches): 3.00 Weight (Pounds): 170 Objective GENERAL: Alert, awake, and oriented. LUNGS: Decreased breath sounds bilaterally. HEART: Regular. ABDOMEN: Soft, nontender. EXTREMITIES: No cyanosis. No clubbing. No edema. NEURO: No changes. Leonardo Joseph Aug 06, 2019 13:02
[2019-08-06 15:46] VITALS: BP 116/76
[2019-08-06 20:00] VITALS: BP 117/83
--- NOTE | 2019-08-06 21:11 | General Progress Note ---
Assessment/Plan Problem List: (1) Back pain ICD Codes: M54.9 - Dorsalgia, unspecified SNOMED: 797403429 (2) Hypertension ICD Codes: I10 - Essential (primary) hypertension SNOMED: 88185275 Qualifiers: Qualified Codes: I10 - Essential (primary) hypertension (3) Kidney stone on right side ICD Codes: N20.0 - Calculus of kidney SNOMED: 31432293 Status: progressing Assessment/Plan: afebrile flank pain is improving s/p dissolution of kidney stone rodgers removed monitor over night and dc in am Subjective ROS Limited/Unobtainable: Yes Allergies: Coded Allergies: No Known Allergies (Unverified , 07/12/19) Objective Last 24 Hour Vital Signs Date Time Temp Pulse Resp B/P (MAP) Pulse Ox O2 Delivery O2 Flow Rate FiO2 08/06/19 15:46 97.2 79 19 116/76 (89) 99 08/06/19 12:00 97.1 87 19 118/74 (89) 99 08/06/19 09:00 Nasal Cannula 2.0 08/06/19 08:00 98.2 85 18 124/81 (95) 95 08/06/19 04:00 98.2 67 18 117/72 (87) 98 08/06/19 00:00 97.6 97 18 133/80 (97) 98 Intake and Output 08/05/19 08/06/19 19:00 07:00 Intake Total 550 ml Output Total 1950 ml 550 ml Balance -1400 ml -550 ml Intake Oral 400 ml IV Total 150 ml Output Urine Total 1950 ml 550 ml # Voids 1 Height (Feet): 5 Height (Inches): 3.00 Weight (Pounds): 170 Leandro Mesa MD Aug 06, 2019 21:11
[2019-08-07] VITALS: BP 121/77
[2019-08-07 03:59] VITALS: BP 127/85
[2019-08-07] MEDS: D5 1/2NS w/KCl 20mEq 1,000 ML IV SCH (05:00)
[2019-08-07 06:39] LABS: ALANINE AMINOTRANSFERASE 17 U/L (12-78); ALBUMIN 2.9 G/DL (3.4-5.0); ALBUMIN/GLOBULIN RATIO 0.8 (1.0-2.7); ALKALINE PHOSPHATASE 53 U/L (46-116); ANION GAP 9 mmol/L (5-15); ASPARTATE AMINO TRANSFERASE 17 U/L (15-37); BILIRUBIN,TOTAL 0.6 MG/DL (0.2-1.0); BLOOD UREA NITROGEN 23 mg/dL (7-18); CALCIUM 8.2 MG/DL (8.5-10.1); CARBON DIOXIDE 25 MMOL/L (21-32); CHLORIDE 106 MMOL/L (98-107); CREATININE 1.2 MG/DL (0.55-1.30); POTASSIUM 3.6 MMOL/L (3.5-5.1); SODIUM 140 MMOL/L (136-145)
[2019-08-07 07:13] LABS: BASOPHILS % (AUTO) 0.7 % (0.0-2.0); EOSINOPHILS % (AUTO) 1.3 % (0.0-3.0); HEMATOCRIT 41.6 % (42.0-52.0); HEMOGLOBIN 13.1 G/DL (14.2-18.0); LYMPHOCYTES % (AUTO) 15.5 % (20.0-45.0); MEAN CORPUSCULAR VOLUME 91 FL (80-99); MONOCYTES % (AUTO) 9.2 % (1.0-10.0); NEUTROPHILS % (AUTO) 73.2 % (45.0-75.0); PLATELET COUNT 250 K/UL (150-450); RED BLOOD COUNT 4.58 M/UL (4.70-6.10); RED CELL DISTRIBUTION WIDTH 13.1 % (11.6-14.8); WHITE BLOOD COUNT 10.1 K/UL (4.8-10.8)
[2019-08-07 08:00] VITALS: BP 147/94
[2019-08-07] MEDS: Docusate 100mg cap ORAL SCH ×2 (08:31→13:49)
[2019-08-07] MEDS: Ciprofloxacin 500mg tab ORAL SCH (08:32)
--- NOTE | 2019-08-07 10:01 | Nephrology Progress Note ---
Assessment/Plan Problem List: (1) Kidney stone on right side (2) Hypertension Assessment Hypertension, Kidney stone on right side CT iMPRESSION: 7 mm partially obstructing calculus located at the right mid ureter. Mild upstream dilatation of the collecting system. There is suggestion of mild urothelial enhancement. There is left renal enlargement and perinephric stranding/small fluid. These findings are likely obstructive Plan August 06: Patient stable from renal standpoint of view. Blood pressure is well controlled. Continue same management. DC planning per PMD and Dr. Mercado. Will discontinue IV fluid. Patient had urological procedure by Dr. Mercado yesterday Status qou, Lab reviewed. On IV fluid We started Colace and Protonix p.o. PRN blood pressure medication if blood pressure goes over 160 systolic Per orders Subjective ROS Limited/Unobtainable: No Objective Objective Last 24 Hour Vital Signs Date Time Temp Pulse Resp B/P (MAP) Pulse Ox O2 Delivery O2 Flow Rate FiO2 08/07/19 09:00 Room Air 08/07/19 08:00 97.7 74 20 147/94 (111) 97 08/07/19 03:59 98.2 62 20 127/85 (99) 98 08/07/19 00:00 98.4 81 20 121/77 (92) 98 08/06/19 21:00 Room Air 08/06/19 20:30 84 08/06/19 20:00 98.3 97 20 117/83 (94) 98 08/06/19 15:46 97.2 79 19 116/76 (89) 99 08/06/19 12:00 97.1 87 19 118/74 (89) 99 Intake and Output 08/06/19 08/07/19 19:00 07:00 Intake Total 1360 ml 1050 ml Output Total 700 ml 750 ml Balance 660 ml 300 ml Intake Oral 960 ml 500 ml IV Total 400 ml 550 ml Output Urine Total 700 ml 750 ml # Voids 1 2 Current Medications Medications (Trade) Dose Ordered Sig/Bret Route PRN Reason Start Time Stop Time Status Last Admin Dose Admin Acetaminophen/ Hydrocodone Bitart ([place] 5/325) 1 tab Q6H PRN ORAL For Pain 08/04/19 04:45 08/11/19 04:44 08/06/19 20:59 Ciprofloxacin (Cipro 500mg tab) 500 mg EVERY 12 HOURS ORAL 08/06/19 10:00 08/13/19 09:59 08/07/19 08:32 Clonidine HCl (Catapres Tab) 0.1 mg Q6H PRN ORAL For High Blood Pressure 08/04/19 04:45 11/02/19 04:44 Dextrose/ Electrolytes 1,000 ml @ 50 mls/hr Q20H IV 08/04/19 15:00 09/03/19 14:59 08/07/19 05:00 Docusate Sodium (Colace) 100 mg THREE TIMES A DAY ORAL 08/04/19 18:00 09/03/19 17:59 08/07/19 08:31 Ibuprofen (Motrin) 600 mg Q6H PRN ORAL Mild Pain (Pain Scale 1-3) 08/04/19 10:45 09/03/19 04:44 Ondansetron HCl (Zofran) 4 mg Q6H PRN IVP Nausea & Vomiting 08/04/19 04:45 09/03/19 04:44 Pantoprazole (Protonix) 40 mg EVERY 12 HOURS ORAL 08/04/19 14:15 09/03/19 14:14 08/07/19 08:32 Laboratory Tests 08/07/19 05:15: White Blood Count 10.1, Red Blood Count 4.58L, Hemoglobin 13.1L, Hematocrit 41.6L, Mean Corpuscular Volume 91, Mean Corpuscular Hemoglobin 28.5, Mean Corpuscular Hemoglobin Concent 31.4L, Red Cell Distribution Width 13.1, Platelet Count 250, Mean Platelet Volume 6.1L, Neutrophils (%) (Auto) 73.2, Lymphocytes (%) (Auto) 15.5L, Monocytes (%) (Auto) 9.2, Eosinophils (%) (Auto) 1.3, Basophils (%) (Auto) 0.7, Sodium Level 140, Potassium Level 3.6, Chloride Level 106, Carbon Dioxide Level 25, Anion Gap 9, Blood Urea Nitrogen 23H, Creatinine 1.2, Estimat Glomerular Filtration Rate > 60, Glucose Level 104, Calcium Level 8.2L, Phosphorus Level 3.0, Magnesium Level 1.8, Total Bilirubin 0.6, Aspartate Amino Transf (AST/SGOT) 17, Alanine Aminotransferase (ALT/SGPT) 17, Alkaline Phosphatase 53, C-Reactive Protein, Quantitative 0.7, Pro-B-Type Natriuretic Peptide 116, Total Protein 6.4, Albumin 2.9L, Globulin 3.5, Albumin/ Globulin Ratio 0.8L Height (Feet): 5 Height (Inches): 3.00 Weight (Pounds): 170 General Appearance: no apparent distress Respiratory/Chest: lungs clear Abdomen: soft Genitourinary/Rectal: other Objective No change Boogie Toussaint MD Aug 07, 2019 10:01
--- NOTE | 2019-08-07 10:28 | General Progress Note ---
Assessment/Plan Assessment/Plan: (1) Right sided flank pain (2) Kidney stone Patient to be continued on [place]. an Rx for [place] 5mg PO 1 tab Q6-8H 10 tabs with Narcan nasal spray was written for patient in anticipation for discharge. D/w Dr. Lopez and he concurred. Subjective Date patient seen: Aug 07, 2019 Time patient seen: 10:15 - am Allergies: Coded Allergies: No Known Allergies (Unverified , 07/12/19) Subjective REVIEW OF SYSTEMS: Denies rash, fever, chills, sweating, dizziness, drowsiness, sore throat, or change in weight. No shortness of breath or chest pain. No nausea, vomiting, diarrhea, blood in stool. No dysuria. 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 His pain has been at a moderate level using the [place] as needed. No new complaints at this time. Objective Last 24 Hour Vital Signs Date Time Temp Pulse Resp B/P (MAP) Pulse Ox O2 Delivery O2 Flow Rate FiO2 08/07/19 09:00 Room Air 08/07/19 08:00 97.7 74 20 147/94 (111) 97 08/07/19 03:59 98.2 62 20 127/85 (99) 98 08/07/19 00:00 98.4 81 20 121/77 (92) 98 08/06/19 21:00 Room Air 08/06/19 20:30 84 08/06/19 20:00 98.3 97 20 117/83 (94) 98 08/06/19 15:46 97.2 79 19 116/76 (89) 99 08/06/19 12:00 97.1 87 19 118/74 (89) 99 Intake and Output 08/06/19 08/07/19 19:00 07:00 Intake Total 1360 ml 1050 ml Output Total 700 ml 750 ml Balance 660 ml 300 ml Intake Oral 960 ml 500 ml IV Total 400 ml 550 ml Output Urine Total 700 ml 750 ml # Voids 1 2 Laboratory Tests 08/07/19 05:15: White Blood Count 10.1, Red Blood Count 4.58L, Hemoglobin 13.1L, Hematocrit 41.6L, Mean Corpuscular Volume 91, Mean Corpuscular Hemoglobin 28.5, Mean Corpuscular Hemoglobin Concent 31.4L, Red Cell Distribution Width 13.1, Platelet Count 250, Mean Platelet Volume 6.1L, Neutrophils (%) (Auto) 73.2, Lymphocytes (%) (Auto) 15.5L, Monocytes (%) (Auto) 9.2, Eosinophils (%) (Auto) 1.3, Basophils (%) (Auto) 0.7, Sodium Level 140, Potassium Level 3.6, Chloride Level 106, Carbon Dioxide Level 25, Anion Gap 9, Blood Urea Nitrogen 23H, Creatinine 1.2, Estimat Glomerular Filtration Rate > 60, Glucose Level 104, Calcium Level 8.2L, Phosphorus Level 3.0, Magnesium Level 1.8, Total Bilirubin 0.6, Aspartate Amino Transf (AST/SGOT) 17, Alanine Aminotransferase (ALT/SGPT) 17, Alkaline Phosphatase 53, C-Reactive Protein, Quantitative 0.7, Pro-B-Type Natriuretic Peptide 116, Total Protein 6.4, Albumin 2.9L, Globulin 3.5, Albumin/ Globulin Ratio 0.8L Height (Feet): 5 Height (Inches): 3.00 Weight (Pounds): 170 Objective GENERAL: Alert, awake, and oriented. LUNGS: Decreased breath sounds bilaterally. HEART: Regular. ABDOMEN: Soft, nontender. EXTREMITIES: No cyanosis. No clubbing. No edema. NEURO: No changes. Leonardo Joseph Aug 07, 2019 10:28
[2019-08-07] MEDS: HYDROcodone/Acetamin 5/325 tab ORAL PRN (11:21)
[2019-08-07 12:00] VITALS: BP 149/93
--- NOTE | 2019-08-07 13:17 | Infectious Diseases Prog Note ---
Assessment/Plan Assessment/Plan IMPRESSION: Right ureteral stone s/p ESWL & ureteral stent placement Acute renal failure resolving, ? pyelonephritis in left side RECOMMENDATION: Agree with discharge with PO Cipro Subjective ROS Limited/Unobtainable: No Constitutional: Reports: no symptoms Respiratory: Reports: no symptoms Cardiovascular: Reports: no symptoms Gastrointestinal/Abdominal: Reports: no symptoms, other - Barton was removed Allergies: Coded Allergies: No Known Allergies (Unverified , 07/12/19) Objective Vital Signs Last 24 Hour Vital Signs Date Time Temp Pulse Resp B/P (MAP) Pulse Ox O2 Delivery O2 Flow Rate FiO2 08/07/19 12:00 98.4 85 18 149/93 (111) 95 08/07/19 09:00 Room Air 08/07/19 08:00 97.7 74 20 147/94 (111) 97 08/07/19 03:59 98.2 62 20 127/85 (99) 98 08/07/19 00:00 98.4 81 20 121/77 (92) 98 08/06/19 21:00 Room Air 08/06/19 20:30 84 08/06/19 20:00 98.3 97 20 117/83 (94) 98 08/06/19 15:46 97.2 79 19 116/76 (89) 99 Height (Feet): 5 Height (Inches): 3.00 Weight (Pounds): 170 General Appearance: no acute distress HEENT: mucous membranes moist Respiratory/Chest: lungs clear Cardiovascular: normal rate Abdomen: soft, non tender, no organomegaly Extremities: no edema Neurologic/Psychiatric: alert, responsive Microbiology Date/Time Source Procedure Growth Status 08/04/19 13:30 Nasopharynx Coronavirus COVID-19 PCR ([facility]) - Final Complete Laboratory Tests Test 08/07/19 05:15 White Blood Count 10.1 K/UL (4.8-10.8) Red Blood Count 4.58 M/UL (4.70-6.10) L Hemoglobin 13.1 G/DL (14.2-18.0) L Hematocrit 41.6 % (42.0-52.0) L Mean Corpuscular Volume 91 FL (80-99) Mean Corpuscular Hemoglobin 28.5 PG (27.0-31.0) Mean Corpuscular Hemoglobin Concent 31.4 G/DL (32.0-36.0) L Red Cell Distribution Width 13.1 % (11.6-14.8) Platelet Count 250 K/UL (150-450) Mean Platelet Volume 6.1 FL (6.5-10.1) L Neutrophils (%) (Auto) 73.2 % (45.0-75.0) Lymphocytes (%) (Auto) 15.5 % (20.0-45.0) L Monocytes (%) (Auto) 9.2 % (1.0-10.0) Eosinophils (%) (Auto) 1.3 % (0.0-3.0) Basophils (%) (Auto) 0.7 % (0.0-2.0) Sodium Level 140 MMOL/L (136-145) Potassium Level 3.6 MMOL/L (3.5-5.1) Chloride Level 106 MMOL/L (98-107) Carbon Dioxide Level 25 MMOL/L (21-32) Anion Gap 9 mmol/L (5-15) Blood Urea Nitrogen 23 mg/dL (7-18) H Creatinine 1.2 MG/DL (0.55-1.30) Estimat Glomerular Filtration Rate > 60 mL/min (>60) Glucose Level 104 MG/DL (74-106) Calcium Level 8.2 MG/DL (8.5-10.1) L Phosphorus Level 3.0 MG/DL (2.5-4.9) Magnesium Level 1.8 MG/DL (1.8-2.4) Total Bilirubin 0.6 MG/DL (0.2-1.0) Aspartate Amino Transf (AST/SGOT) 17 U/L (15-37) Alanine Aminotransferase (ALT/SGPT) 17 U/L (12-78) Alkaline Phosphatase 53 U/L (46-116) C-Reactive Protein, Quantitative 0.7 mg/dL (0.00-0.90) Pro-B-Type Natriuretic Peptide 116 pg/mL (0-125) Total Protein 6.4 G/DL (6.4-8.2) Albumin 2.9 G/DL (3.4-5.0) L Globulin 3.5 g/dL Albumin/Globulin Ratio 0.8 (1.0-2.7) L Current Medications Medications (Trade) Dose Ordered Sig/Bret Route PRN Reason Start Time Stop Time Status Last Admin Dose Admin Acetaminophen/ Hydrocodone Bitart ([place] 5/325) 1 tab Q6H PRN ORAL For Pain 08/04/19 04:45 08/11/19 04:44 08/07/19 11:21 Ciprofloxacin (Cipro 500mg tab) 500 mg EVERY 12 HOURS ORAL 08/06/19 10:00 08/13/19 09:59 08/07/19 08:32 Clonidine HCl (Catapres Tab) 0.1 mg Q6H PRN ORAL For High Blood Pressure 08/04/19 04:45 11/02/19 04:44 Docusate Sodium (Colace) 100 mg THREE TIMES A DAY ORAL 08/04/19 18:00 09/03/19 17:59 08/07/19 08:31 Ibuprofen (Motrin) 600 mg Q6H PRN ORAL Mild Pain (Pain Scale 1-3) 08/04/19 10:45 09/03/19 04:44 Ondansetron HCl (Zofran) 4 mg Q6H PRN IVP Nausea & Vomiting 08/04/19 04:45 09/03/19 04:44 Pantoprazole (Protonix) 40 mg EVERY 12 HOURS ORAL 08/04/19 14:15 09/03/19 14:14 08/07/19 08:32 Fortino Conde MD Aug 07, 2019 13:17
--- NOTE | 2019-08-07 16:42 | General Progress Note ---
Assessment/Plan Problem List: (1) Back pain ICD Codes: M54.9 - Dorsalgia, unspecified SNOMED: 332737208 (2) Hypertension ICD Codes: I10 - Essential (primary) hypertension SNOMED: 85920591 Qualifiers: Qualified Codes: I10 - Essential (primary) hypertension (3) Kidney stone on right side ICD Codes: N20.0 - Calculus of kidney SNOMED: 21846573 Status: progressing Assessment/Plan: break up of kidney stone rodgers removed clearedd by urology so gave dc order f/u urology Subjective ROS Limited/Unobtainable: Yes Allergies: Coded Allergies: No Known Allergies (Unverified , 07/12/19) Objective Last 24 Hour Vital Signs Date Time Temp Pulse Resp B/P (MAP) Pulse Ox O2 Delivery O2 Flow Rate FiO2 08/07/19 12:00 98.4 85 18 149/93 (111) 95 08/07/19 09:00 Room Air 08/07/19 08:00 97.7 74 20 147/94 (111) 97 08/07/19 03:59 98.2 62 20 127/85 (99) 98 08/07/19 00:00 98.4 81 20 121/77 (92) 98 08/06/19 21:00 Room Air 08/06/19 20:30 84 08/06/19 20:00 98.3 97 20 117/83 (94) 98 Intake and Output 08/06/19 08/07/19 19:00 07:00 Intake Total 1360 ml 1050 ml Output Total 700 ml 750 ml Balance 660 ml 300 ml Intake Oral 960 ml 500 ml IV Total 400 ml 550 ml Output Urine Total 700 ml 750 ml # Voids 1 2 Laboratory Tests 08/07/19 05:15: White Blood Count 10.1, Red Blood Count 4.58L, Hemoglobin 13.1L, Hematocrit 41.6L, Mean Corpuscular Volume 91, Mean Corpuscular Hemoglobin 28.5, Mean Corpuscular Hemoglobin Concent 31.4L, Red Cell Distribution Width 13.1, Platelet Count 250, Mean Platelet Volume 6.1L, Neutrophils (%) (Auto) 73.2, Lymphocytes (%) (Auto) 15.5L, Monocytes (%) (Auto) 9.2, Eosinophils (%) (Auto) 1.3, Basophils (%) (Auto) 0.7, Sodium Level 140, Potassium Level 3.6, Chloride Level 106, Carbon Dioxide Level 25, Anion Gap 9, Blood Urea Nitrogen 23H, Creatinine 1.2, Estimat Glomerular Filtration Rate > 60, Glucose Level 104, Calcium Level 8.2L, Phosphorus Level 3.0, Magnesium Level 1.8, Total Bilirubin 0.6, Aspartate Amino Transf (AST/SGOT) 17, Alanine Aminotransferase (ALT/SGPT) 17, Alkaline Phosphatase 53, C-Reactive Protein, Quantitative 0.7, Pro-B-Type Natriuretic Peptide 116, Total Protein 6.4, Albumin 2.9L, Globulin 3.5, Albumin/ Globulin Ratio 0.8L Height (Feet): 5 Height (Inches): 3.00 Weight (Pounds): 170 Leandro Mesa MD Aug 07, 2019 16:42
--- NOTE | 2019-08-09 15:50 | Discharge Summary ---
Discharge Summary Discharge Summary _ DATE OF ADMISSION: 08/04/2019 DATE OF DISCHARGE: 08/07/2019 DISCHARGED BY: Dr. Leandro Feliciano CONSULTANTS: Dr. Fortino Mercado BRIEF HOSPITAL COURSE: Patient is a 53-year-old male, who presented to ED due to low back pain. Pain started on the day of admission. Pain was described to be dull, 10 out of 10 and nonradiating. He had similar back pain in the past. He denied any nausea or vomiting. Denied dysuria or hematuria. Denied any fall or injury. He has medical history of high blood pressure and has not been taking his antihypertensives for months. On evaluation at the ED, blood pressure was 196/122, heart rate 81. Blood work showed leukocytosis with WBC elevated to 14.8. Hemoglobin and hematocrit were stable. Electrolytes were normal. BUN 22 and creatinine 1.4. GFR 53. LFTs normal. Glucose 123. Urine toxicology screen was negative. CT scan of the abdomen and pelvis with IV contrast showed 7 mm partially obstructing calculus located at the right mid ureter. Mild upstream dilatation of the collecting system. Left renal enlargement and perinephric stranding. Blood pressure was elevated. He was given hydralazine. He was given pain medication and Flomax. He was started on antibiotics. He was then admitted for obstructive uropathy. He was started on IV hydration. He was placed on n.p.o. He was given pain management. He was started on Ancef. COVID testing was negative. On 08/05/2019, he underwent extracorporeal shockwave lithotripsy with right stent placement by Dr. Mercado. He tolerated procedure well. He was continued on [place] for pain management. Kidney function was improving. Antibiotic was switched to p.o. ciprofloxacin. Blood pressure control improved. Kidney function normalized. Barton catheter was removed. Patient was able to void freely. Patient was cleared for discharge home. FINAL DIAGNOSES: Right ureteral stone status post ESWL and right ureteral stent placement Acute renal failure, resolved Possible pyelonephritis in the left kidney Hypertension DISPOSITION: NM home with home health. DISCHARGE MEDICATIONS: Refer to Discharge Medication List. DISCHARGE INSTRUCTIONS: Follow-up in a week. I have been assigned to complete a discharge summary on this account, I was not involved with the patient's management.--YURY Horowitz Jacqueline Robles NP Aug 09, 2019 15:50
--- NOTE | 2019-08-10 16:30 | Operative Note - Dictated ---
DATE OF OPERATION: 08/05/2019 PREOPERATIVE DIAGNOSIS: Left UPJ stone. POSTOPERATIVE DIAGNOSIS: Left UPJ stone. OPERATION: Cystoscopy, retrograde pyelogram, semi-rigid ureteroscopy with laser lithotripsy of left ureter, extracorporeal shock wave lithotripsy, stent placement. NURSE TRANSITIONAL: Ludin Mercado MD ANESTHESIA: General. FINDINGS: Impacted stone in the left ureter. INDICATIONS FOR SURGERY: The patient was admitted to the emergency room with acute renal colic. CT urogram showed impacted stone in the left ureter. Treatment options explained to him in great length including all potential complications. He signed a consent. DESCRIPTION OF PROCEDURE: Brought to the operating room, placed in lithotomy position. Prepped and draped in a standard fashion. Under general anesthesia, cystoscope was introduced into the bladder. Left ureter was cannulated. Semi-rigid ureteroscope was introduced alongside the wire. Stone was found in the upper ureter. Using 360 micron fiber, the stone was fragmented into small pieces. Some of it was retrieved with Nitinol basket for pathologic examination. Additional shock wave lithotripsy with 9 kilovolts and 300 shocks were applied. Stone was further fragmented. Double-J stent, 26-[place] was placed and left indwelling Barton catheter. The patient tolerated the procedure well. No evidence of complications. Ludin Mercado M.D. DR: OLAYINKA JOB#: [id number] CC:
== END 2019-08-07 15:47 | disposition home health service (06) | DRG 661 ==
LOC: EEVIPCON 22:47 → EMR 22:47 → 3E 08-04 00:58 → EDBEDREQ 08-04 01:33
PROC: 0T778DZ Dilation of Left Ureter with Intraluminal Device, Via Natural or Artificial Opening Endoscopic (ICD-10-PCS; principal; 2019-08-05 15:45)
PROC: 0TC78ZZ Extirpation of Matter from Left Ureter, Via Natural or Artificial Opening Endoscopic (ICD-10-PCS; principal; 2019-08-05 15:45)
DX: N13.6 Pyonephrosis (principal); N17.9 Acute kidney failure, unspecified; I10 Essential (primary) hypertension; E86.0 Dehydration; K64.9 Unspecified hemorrhoids
CPT/HCPCS: 36415; 71275; 74174; 80048; 80053; 80061; 80307; 81003; 82607; 82746; 82977; 83036; 83735; 83880; 84100; 84443; 84550; 85007; 85025; 86140; 94003; 94150; 96374; 96375; 99291; J2250; J2405; J2710; J7030